=== PATIENT | female | born 1955 | race Caucasian/White ===

== ENCOUNTER 2019-11-27 17:18 | Emergency (ER) | payer MEDICARE, SELFPAY ==
--- NOTE | ~2019-11-27 | XR_ITS ---
XR knee LT 3V 11/27/2019 17:55 Indication: Left knee pain Procedure: 3 views left knee Comparison: 03/17/2007 Findings: There has been progression of severe osteoarthritis of the left knee. Small joint effusion. No acute fracture or traumatic malalignment. No foreign bodies. Impression: 1: Severe osteoarthritis of the left knee. Reviewed, dictated and finalized at location A. ER Impression: 1: Severe osteoarthritis of the left knee.
--- NOTE | 2019-11-27 17:22 | ED.LOWEXIN ---
HPI - Extremity Injury (Lower) General Chief Complaint: Extremity Injury, Lower Stated Complaint: L KNEE PAIN Time Seen by Provider: 11/27/19 17:46 Source: patient and RN notes reviewed Mode of arrival: ambulatory Limitations: no limitations History of Present Illness HPI Narrative: 64-year-old female with history of osteoarthritis in the knee presents with concern for left knee injury after hearing a crunch in her left knee when she was getting out of a truck, denies fall, denies blunt trauma, or other direct injury. Reports increase in swelling in the left knee. MD complaint: knee injury Related Data Home Medications Medication Instructions Recorded Confirmed acetaminophen 500 mg tablet 500 mg PO Q4H PRN 09/20/19 11/27/19 cholecalciferol (vitamin D3) 2,000 2,000 unit PO DAILY 09/20/19 11/27/19 unit tablet Allergies Allergy/AdvReac Type Severity Reaction Status Date / Time atenolol Allergy Unknown Cough Verified 11/27/19 17:37 chlorthalidone [Tenoretic] Allergy Unknown Other Verified 11/27/19 17:37 erythromycin base Allergy Unknown Abdominal Verified 11/27/19 17:37 Pain metronidazole Allergy Unknown water Verified 11/27/19 17:37 blisters Penicillins Allergy Unknown Blister Verified 11/27/19 17:37 tetracycline Allergy Unknown WATER Verified 11/27/19 17:37 BLISTERS morphine AdvReac Unknown N/V Verified 11/27/19 17:37 METRONIDAZOLE HCL Allergy Unknown WATER Uncoded 05/05/17 07:58 BLISTERS Review of Systems Review of Systems: Narrative: CONSTITUTIONAL: Denies malaise, chills, sweats, or fever. CARDIOVASCULAR: Denies chest pain, palpitations, or edema. RESPIRATORY: Denies dyspnea. SKIN: Denies rash or itching. MUSCULOSKELETAL: Reports left knee pain and swelling NEUROLOGIC: Denies numbness. Reports baseline left knee weakness. All systems reviewed & are unremarkable except as noted in HPI and below PMFSH Past Medical History Medical History (Updated 11/27/19 @ 18:13 by Damaris Whitehead NP) FH: mastectomy (2009) Hepatitis C antibody test negative (08/03/19) Surgical History Surgical History (Updated 09/20/19 @ 09:44 by Palmira Damico CMA) History of cholecystectomy (05/26/08) Family History Family History (Updated 02/11/18 @ 13:24 by DOCTOR UNKNOWN) Other Family history of cardiovascular disease Social History Social History Smoking status: Never smoker Alcohol intake: current Comments At time of signature, agree with nursing past medical, surgical, social and family history. There is no relevant family history pertinent to the presenting complaint Exam Narrative: Exam Narrative: GENERAL: Well-appearing, well-nourished, and in no acute distress. HEAD: Normocephalic, atraumatic. EYES: PERRLA, conjunctivae clear NECK: Supple. CHEST: Clear to auscultation. No respiratory distress. HEART: Regular rate and rhythm. No murmur heard. Normal peripheral pulses. EXTREMITIES: Left knee has normal sensation, moderate edema, limited range of motion. 3/5 strength with knee flexion and extension. No open wounds, no skin tenting, no devitalized tissue or atrophy, no trophic changes, no ecchymosis, no obvious deformity, alignment normal, no point tenderness, nearby joints and structures intact. Distal pulses palpable and equal bilaterally, skin warm, dry, pink. Capillary refill less than 3 seconds. SKIN: Warm, dry, no rash. NEURO: Alert and oriented x3. PSYCH: Normal mood and affect Course Course Emergency Course: Patient is aware of diagnosis, understands and agrees to treatment plan. Anticipatory guidance given. Patient agrees to follow-up as directed and is aware of reasons to seek care at the emergency department. Portions of this record may have been created with voice recognition software Vital Signs Vital signs: Vital Signs Temperature 97.6 F 11/27/19 17:24 Pulse Rate 84 11/27/19 17:24 Respiratory Rate 20 11/27/19 17:24 Blood Pressure 153/89 H
[2019-11-27 17:24] VITALS: BP 153/89; PULSE 84; RESP 20; TEMP 36.4; O2SAT 100
== END 2019-11-27 18:24 | disposition home or self-care (01) ==
PROVIDERS: Emergency Provider Nurse Practitioner
DX: S89.92XA Unspecified injury of left lower leg, initial encounter (principal); X58.XXXA Exposure to other specified factors, initial encounter; M17.12 Unilateral primary osteoarthritis, left knee; I10 Essential (primary) hypertension; Z85.3 Personal history of malignant neoplasm of breast; Z90.13 Acquired absence of bilateral breasts and nipples; Z92.21 Personal history of antineoplastic chemotherapy
CPT/HCPCS: 73562; 99213; G0463

== ENCOUNTER 2019-12-16 13:45 | Outpatient (CLI) | payer MEDICARE, SELFPAY ==
[2019-12-16 13:59] LABS: Basophils Percent Auto 0.6 % (0.2-1.2); Eosinophils Absolute Auto 0.1 K/mm3 (0-0.3); Hematocrit 39.6 % (37.0-47.0); Hemoglobin 13.1 g/dL (12.0-15.0); Immature Granulocyte Absolute 0.02 K/mm3 (0.00-0.031); Immature Granulocyte Percent A 0.3 % (0-0.5); Lymphocytes Absolute Auto 2.46 K/mm3 (0.9-3.2); Lymphocytes Percent Auto 37.7 % (18.3-44.2); Mean Corpuscular HGB Conc 33.1 g/dl (32-36); Mean Corpuscular Hemoglobin 30.5 pg (26-34); Mean Corpuscular Volume 92.3 fl (80-100); Mean Platelet Volume 8.8 fl (7.4-10.4); Monocytes Absolute Auto 0.9 K/mm3 (0.1-0.6); Monocytes Percent Auto 14.1 % (2.6-8.5); Neutrophils Percent Auto 45.3 % (45.5-73.1); Platelet Count Result 210 k/mm3 (150-375); Red Blood Count 4.29 M/mm3 (4.2-5.4); Red Cell Distribution Width 13.8 % (11.5-14.5); White Blood Count 6.5 K/mm3 (4.5-10.0)
[2019-12-16 16:53] LABS: Alanine Aminotransferase 28 U/L (4-35); Albumin Level 4.3 g/dL (3.5-5.1); Alkaline Phosphatase 78 U/L (38-126); Aspartate Amino Transferase 30 U/L (14-36); Bilirubin,Total 0.4 mg/dL (0.2-1.3); Blood Urea Nitrogen 14 mg/dL (7-17); Carbon Dioxide 31 mmol/L (22-30); Chloride 98 mmol/L (98-107); Estimated Glomerular Filt Rate > 60; Glucose 96 mg/dL (65-105); Potassium 3.9 mmol/L (3.4-5.0); Sodium 140 mmol/L (137-145)
[2019-12-19 04:58] LABS: CA 27.29 24 U/mL (<38)
== END 2019-12-16 13:46 | disposition home or self-care (01) ==
LOC: ANHLAB 13:48
PROVIDERS: Visit Provider Internal Medicine Hematology & Oncology
DX: C50.112 Malignant neoplasm of central portion of left female breast (principal)
CPT/HCPCS: 36415; 80053; 85025; 86300

== ENCOUNTER 2020-06-16 14:43 | Outpatient (CLI) | payer MEDICARE, SELFPAY ==
--- NOTE | ~2020-06-16 | US_ITS ---
EXAMINATION: US venous doppler [facility] EXAM DATE: 06/16/2020 15:20 INDICATION: Left leg edema, swelling. TECHNIQUE: Multiple grayscale, color flow and Doppler images of the left lower extremity deep venous system were obtained and reviewed. There is no prior study for comparison. FINDINGS: The left common femoral, femoral and profunda veins demonstrate normal color flow, respirat ory variation, augmentation and compressibility. Compressibility, color flow confirmed within the le ft popliteal, posterior tibial, peroneal, and greater saphenous veins. IMPRESSION: 1. No left lower extremity deep venous thrombosis. Reviewed, dictated and finalized at location B.
== END 2020-06-16 14:44 | disposition home or self-care (01) ==
PROVIDERS: PCP Family Medicine; Visit Provider Family Medicine
DX: R60.9 Edema, unspecified (principal)
CPT/HCPCS: 93971

== ENCOUNTER 2020-12-13 08:22 | Outpatient (CLI) | payer MEDICARE, SELFPAY ==
[2020-12-13 08:42] LABS: Basophils Percent Auto 0.6 % (0.2-1.2); Eosinophils Absolute Auto 0.1 K/mm3 (0-0.3); Eosinophils Percent Auto 1.9 % (0-4.4); Hematocrit 40.3 % (37.0-47.0); Immature Granulocyte Absolute 0.01 K/mm3 (0.00-0.031); Immature Granulocyte Percent A 0.1 % (0-0.5); Lymphocytes Absolute Auto 1.88 K/mm3 (0.9-3.2); Lymphocytes Percent Auto 27.1 % (18.3-44.2); Mean Corpuscular HGB Conc 32.3 g/dl (32-36); Mean Corpuscular Hemoglobin 29.7 pg (26-34); Mean Corpuscular Volume 92.2 fl (80-100); Mean Platelet Volume 8.9 fl (7.4-10.4); Monocytes Absolute Auto 1.2 K/mm3 (0.1-0.6); Monocytes Percent Auto 16.7 % (2.6-8.5); Neutrophils Absolute Auto 3.7 K/mm3 (1.3-6.7); Neutrophils Percent Auto 53.6 % (45.5-73.1); Platelet Count Result 288 k/mm3 (150-375); Red Blood Count 4.37 M/mm3 (4.2-5.4); White Blood Count 6.9 K/mm3 (4.5-10.0)
[2020-12-13 09:34] LABS: Alanine Aminotransferase 28 U/L (4-35); Albumin Level 4.1 g/dL (3.5-5.1); Alkaline Phosphatase 72 U/L (38-126); Anion Gap 7 mmol/L (8-16); Aspartate Amino Transferase 30 U/L (14-36); Bilirubin,Total 0.4 mg/dL (0.2-1.3); Blood Urea Nitrogen 17 mg/dL (7-17); Calcium 9.8 mg/dL (8.4-10.2); Carbon Dioxide 31 mmol/L (22-30); Chloride 97 mmol/L (98-107); Estimated Glomerular Filt Rate > 60; Glucose 106 mg/dL (65-105); Sodium 135 mmol/L (137-145)
[2020-12-16 07:22] LABS: CA 27.29 33 U/mL (<38)
== END 2020-12-13 08:23 | disposition home or self-care (01) ==
LOC: ANHLAB 08:25
PROVIDERS: PCP Family Medicine; Visit Provider Internal Medicine Hematology & Oncology
DX: C50.112 Malignant neoplasm of central portion of left female breast (principal)
CPT/HCPCS: 36415; 80053; 85025; 86300

== ENCOUNTER 2021-06-02 10:35 | Emergency (ER) | payer MEDICARE, SELFPAY ==
[2021-06-02 10:47] VITALS: BP 146/85; PULSE 69; RESP 16; TEMP 36.4; O2SAT 98
--- NOTE | 2021-06-02 11:10 | ED.GENADULT ---
HPI - General Adult General Chief complaint: Upper Respiratory Infection Stated complaint: sinus issues/difficulty breathing Time Seen by Provider: 06/02/21 11:00 Source: patient and RN notes reviewed Mode of arrival: ambulatory Limitations: no limitations History of Present Illness HPI narrative: 66-year-old female presents with complaints of upper respiratory infection, sneezing, some facial congestion, facial pressure, and cough for the past 14 days. Muna reports increasing facial pressure, coughing, and URI symptoms over the past 72 hours. Claritin, Flonase, Albuterol inhaler, and OTC cough medication without relief. ?No facial swelling.? Cough without chest congestion. ?Nasal congestion and rhinorrhea. ?No sore throat. No high fevers, drooling, neck or throat swelling. ?No voice change. ?No nausea, vomiting, or abdominal pain. Tolerating liquids well. ?Denies chills, dyspnea, difficulty swallowing, foreign body sensation, and rash. ?No chest pain or shortness of breath. ? The patient reports she has not been diagnosed with COVID-19. The patient reports she received 2 [employer] COVID-19 vaccines. The patient reports she is not waiting for the results of a COVID-19 lab test. The patient reports she does not have weakness, fatigue, or myalgia. The patient reports she does not have any loss of taste or smell and diarrhea. Denies recent traveling. Denies concerns for COVID-19 or exposures. At this time, the patient is not suspected of having COVID-19. Some parts of this dictation were generated by voice recognition software and may contain typographical and/or grammatical inaccuracies. Related Data Home Medications Medication Instructions Recorded Confirmed acetaminophen 500 mg tablet 500 mg PO Q4H PRN 09/20/19 03/07/21 cholecalciferol (vitamin D3) 50 2,000 unit PO DAILY 09/20/19 03/07/21 mcg (2,000 unit) tablet aspirin 81 mg tablet,delayed 81 mg PO DAILY 03/07/21 03/07/21 release Allergies Allergy/AdvReac Type Severity Reaction Status Date / Time atenolol Allergy Unknown Cough Verified 03/07/21 10:08 chlorthalidone [Tenoretic] Allergy Unknown Other Verified 03/07/21 10:08 erythromycin base Allergy Unknown Abdominal Verified 03/07/21 10:08 Pain metronidazole Allergy Unknown water Verified 03/07/21 10:08 blisters Penicillins Allergy Unknown Blister Verified 03/07/21 10:08 tetracycline Allergy Unknown WATER Verified 03/07/21 10:08 BLISTERS morphine AdvReac Unknown N/V Verified 11/02/20 10:23 Iodinated Contrast Media AdvReac rash and Verified 03/07/21 10:09 burning METRONIDAZOLE HCL Allergy Unknown WATER Uncoded 11/02/20 10:23 BLISTERS Review of Systems Review of Systems: CONSTITUTIONAL: Denies fever, chills, sweats. EYES: Denies visual changes, redness, discharge. ENT: Complains of rhinorrhea, congestion, facial congestion and pressure, sore throat. Denies otalgia. CARDIOVASCULAR: Denies chest pain, palpitations, edema. RESPIRATORY: Denies dyspnea, wheezing. Complaints of dry cough. GASTROINTESTINAL: Denies abdominal pain, nausea, vomiting, diarrhea. GENITOURINARY: Denies dysuria, hematuria, abnormal discharge SKIN: Denies rash or itching. MUSCULOSKELETAL: Denies acute back pain, joint pain, or myalgia. NEUROLOGIC: Denies numbness or focal weakness. PSYCHIATRIC: Denies anxiety or depression. All other systems reviewed & are unremarkable except as noted in HPI and below. [facility] Past Medical History Medical History (Updated 06/03/21 @ 00:00 by Cruz Sandoval) Asthma (02/24/18) Esophageal reflux Essential (primary) hypertension FH: mastectomy (2009) Hepatitis C antibody test negative (08/03/19) History of breast cancer Metabolic syndrome Mixed hyperlipidemia Other obesity Prediabetes Unspecified osteoarthritis, unspecified site Surgical History Surgical History (Updated 06/02/21 @ 11:13 by DEAN Blackman) History of bilateral mastectomy History of cholecystectomy (
== END 2021-06-02 11:27 | disposition home or self-care (01) ==
PROVIDERS: Emergency Provider Nurse Practitioner Family; PCP Family Medicine
DX: J32.9 Chronic sinusitis, unspecified (principal); J45.909 Unspecified asthma, uncomplicated; K21.9 Gastro-esophageal reflux disease without esophagitis; I10 Essential (primary) hypertension; E78.2 Mixed hyperlipidemia; R73.03 Prediabetes; M19.90 Unspecified osteoarthritis, unspecified site; Z85.3 Personal history of malignant neoplasm of breast; Z90.13 Acquired absence of bilateral breasts and nipples; Z79.82 Long term (current) use of aspirin
CPT/HCPCS: 99213; G0463

== ENCOUNTER → 2021-06-19 03:15 | Outpatient (CLI) | payer MEDICARE, SELFPAY ==
[2021-06-19 19:42] LABS: SARS-CoV-2 RNA PCR Negative
== END ==
PROVIDERS: PCP Family Medicine; Visit Provider Family Medicine
DX: R05 Cough (principal); R09.89 Other specified symptoms and signs involving the circulatory and respiratory systems; R09.81 Nasal congestion; Z20.822 Contact with and (suspected) exposure to COVID-19
CPT/HCPCS: C9803; U0003; U0005

== ENCOUNTER → 2021-08-13 10:04 | Outpatient (CLI) | payer MEDICARE, SELFPAY ==
--- NOTE | ~2021-08-13 | XR_ITS ---
XR chest 2V 08/13/2021 10:22 Indication: Cough for 6 weeks. Breast cancer. Procedure: 2 view chest Comparison: Comparison to multiple prior studies sequentially, with oldest reviewed study dated 01/08. Findings: There is a new pleural-based elliptical density right mid thorax laterally. Heart size norm al. There are surgical clips in the left breast and neck sella. Scoliosis. No focal pneumonia, edema, pleural effusion or pneumothorax. Impression: 1: Elliptical pleural-based masslike density right mid thorax. Follow-up CT chest with contrast recom mended. Reviewed, dictated and finalized at location B. Impression: 1: Elliptical pleural-based masslike density right mid thorax. Follow-up CT [facility] with contrast recommended.
== END ==
PROVIDERS: PCP Family Medicine; Visit Provider Family Medicine
DX: R05.9 Cough, unspecified (principal); R91.8 Other nonspecific abnormal finding of lung field
CPT/HCPCS: 71046

== ENCOUNTER → 2021-08-14 05:58 | Outpatient (CLI) | payer MEDICARE, SELFPAY ==
[2021-08-15 19:26] LABS: SARS-CoV-2 RNA PCR Negative
== END ==
PROVIDERS: PCP Family Medicine; Visit Provider Family Medicine
DX: Z20.822 Contact with and (suspected) exposure to COVID-19 (principal); R05.9 Cough, unspecified
CPT/HCPCS: C9803; U0003; U0005

== ENCOUNTER 2021-08-17 13:54 | Outpatient (CLI) | payer MEDICARE, SELFPAY ==
--- NOTE | ~2021-08-17 | CT_ITS ---
EXAMINATION: CT diagnostic chest w con DATE: 08/17/2021 14:32 INDICATION: Possible right chest mass, history of breast cancer TECHNIQUE: Transaxial computed tomographic images of the chest were obtained after the administration of 75 cc of Omnipaque 350 intravenous contrast. The dose-length product (DLP) was 439.32 mGy-cm. Ite rative reconstruction was used. COMPARISON: 12/29/2018 FINDINGS: The lungs are free of acute opacities. There is no pleural effusion or pneumothorax. No CT correlate is identified for the abnormality described on recent chest radiograph. Finding likely refl ect a the patient's right upper arm projecting over the right hemithorax. There are changes of bilate ral mastectomy and left axillary lymph node dissection. No pathologically enlarged thoracic lymph nod es are identified. The heart size is normal. There is moderate thoracic spondylosis. IMPRESSION: 1. No suspicious CT correlate identified for the chest radiographic finding in question. Reviewed, dictated and finalized at location A.
[2021-08-17 14:28] LABS: Estimated Glomerular Filt Rate > 60
== END 2021-08-17 13:55 | disposition home or self-care (01) ==
PROVIDERS: PCP Family Medicine; Visit Provider Family Medicine
DX: R09.89 Other specified symptoms and signs involving the circulatory and respiratory systems (principal); J94.8 Other specified pleural conditions; Z85.3 Personal history of malignant neoplasm of breast
CPT/HCPCS: 71260; Q9967

== ENCOUNTER → 2021-09-18 08:59 | Outpatient (CLI) | payer MEDICARE, SELFPAY ==
--- NOTE | ~2021-09-18 | XR_ITS ---
EXAMINATION: XR chest 2V DATE: 09/18/2021 09:26 INDICATION: Chronic cough and shortness of breath TECHNIQUE: PA and lateral views of the chest were obtained. COMPARISON: Chest radiograph dated 08/13/[address] dated 08/17/2021 FINDINGS: Mild linear atelectasis/scarring at the left costophrenic angle. Remainder of the lungs are clear wit h no new airspace opacities, pulmonary edema, pleural effusion or pneumothorax. The cardiomediastinal silhouette is normal. Moderate thoracic dextroscoliosis. Multiple surgical clips along the anterior chest wall and left axilla consistent with prior lateral meniscectomies and left axillary lymph node dissection. IMPRESSION: 1. Mild chronic atelectasis/scarring at the lingula. No acute cardiopulmonary disease. Reviewed, dictated and finalized at location A. [employer] IMPRESSION: 1. Mild chronic atelectasis/scarring at the lingula. No acute cardiopulmonary d isease.
== END ==
PROVIDERS: PCP Family Medicine; Visit Provider Family Medicine
DX: J94.8 Other specified pleural conditions (principal); M41.9 Scoliosis, unspecified
CPT/HCPCS: 71046

== ENCOUNTER → 2021-10-09 10:45 | Outpatient (CLI) | payer MEDICARE, SELFPAY ==
[2021-10-10 02:02] LABS: SARS-CoV-2 RNA PCR Negative
== END ==
PROVIDERS: PCP Family Medicine; Visit Provider Physician Assistant Medical
DX: R05.9 Cough, unspecified (principal); Z20.822 Contact with and (suspected) exposure to COVID-19
CPT/HCPCS: C9803; U0003; U0005

== ENCOUNTER 2021-12-03 08:43 | Outpatient (CLI) | payer MEDICARE, SELFPAY ==
[2021-12-03 09:01] LABS: Basophils Absolute Auto 0.1 K/mm3 (0.0-0.1); Basophils Percent Auto 0.9 % (0.2-1.2); Eosinophils Absolute Auto 0.1 K/mm3 (0-0.3); Eosinophils Percent Auto 1.3 % (0-4.4); Hematocrit 42.5 % (37.0-47.0); Hemoglobin 13.5 g/dL (12.0-15.0); Immature Granulocyte Absolute 0.01 K/mm3 (0.00-0.031); Immature Granulocyte Percent A 0.1 % (0-0.5); Lymphocytes Absolute Auto 1.82 K/mm3 (0.9-3.2); Lymphocytes Percent Auto 26.8 % (18.3-44.2); Mean Corpuscular HGB Conc 31.8 g/dl (32-36); Mean Corpuscular Hemoglobin 29.2 pg (26-34); Mean Platelet Volume 9.1 fl (7.4-10.4); Monocytes Percent Auto 14.2 % (2.6-8.5); Neutrophils Absolute Auto 3.8 K/mm3 (1.3-6.7); Neutrophils Percent Auto 56.7 % (45.5-73.1); Platelet Count Result 293 k/mm3 (150-375); Red Blood Count 4.62 M/mm3 (4.2-5.4); Red Cell Distribution Width 13.1 % (11.5-14.5); White Blood Count 6.8 K/mm3 (4.5-10.0)
[2021-12-03 13:50] LABS: Alanine Aminotransferase 25 U/L (4-35); Albumin Level 4.5 g/dL (3.5-5.1); Alkaline Phosphatase 89 U/L (38-126); Anion Gap 3 mmol/L (8-16); Aspartate Amino Transferase 55 U/L (14-36); Bilirubin,Total 0.5 mg/dL (0.2-1.3); Blood Urea Nitrogen 19 mg/dL (7-17); Calcium 10.3 mg/dL (8.4-10.2); Carbon Dioxide 32 mmol/L (22-30); Chloride 99 mmol/L (98-107); Estimated Glomerular Filt Rate > 60; Glucose 100 mg/dL (65-110); Potassium 4.2 mmol/L (3.4-5.0); Sodium 134 mmol/L (137-145)
[2021-12-06 05:25] LABS: CA 15-3 19 U/mL (<32)
== END 2021-12-03 08:44 | disposition home or self-care (01) ==
LOC: ANHLAB 08:44
PROVIDERS: PCP Family Medicine; Visit Provider Internal Medicine Hematology & Oncology
DX: C50.112 Malignant neoplasm of central portion of left female breast (principal)
CPT/HCPCS: 36415; 80053; 85025; 86300

== ENCOUNTER → 2022-02-07 11:53 | Outpatient (CLI) | payer MEDICARE, SELFPAY ==
--- NOTE | ~2022-02-07 | XR_ITS ---
EXAMINATION: XR chest 2V DATE: 02/07/2022 12:16 INDICATION: Cough and shortness of breath TECHNIQUE: PA and lateral views of the chest are obtained. COMPARISON: 09/18/2021 FINDINGS: The lungs are free of acute opacities. There is no pleural effusion or pneumothorax. The ca rdiomediastinal silhouette is normal. There is moderate thoracic spondylosis. Thoracic dextroscoliosi s is noted. There are changes of bilateral mastectomy and left axillary lymph node dissection. IMPRESSION: 1. No acute cardiopulmonary abnormality. Reviewed, dictated and finalized at location A.
== END ==
PROVIDERS: PCP Family Medicine; Visit Provider Family Medicine
DX: J45.909 Unspecified asthma, uncomplicated (principal); M41.9 Scoliosis, unspecified; M47.814 Spondylosis without myelopathy or radiculopathy, thoracic region
CPT/HCPCS: 71046

== ENCOUNTER → 2022-03-11 10:06 | Outpatient (CLI) | payer MEDICARE, SELFPAY ==
--- NOTE | ~2022-03-11 | XR_ITS ---
EXAMINATION: XR chest 2V 03/11/2022 10:48 INDICATION: Cough. Asthma. PROCEDURE: 2 view chest COMPARISON: No prior studies for comparison. FINDINGS: The lungs are clear. The cardiomediastinal silhouette is within normal limits. There are no pleural effusions. There is no pneumothorax suspected. There is scoliosis. No acute osseous abno rmality. IMPRESSION: 1: NO ACUTE CARDIOPULMONARY DISEASE. Reviewed, dictated and finalized at location A.
== END ==
PROVIDERS: PCP Family Medicine; Visit Provider Family Medicine
DX: R05.9 Cough, unspecified (principal)
CPT/HCPCS: 71046

== ENCOUNTER 2022-04-01 09:10 | Outpatient (CLI) | payer MEDICARE, SELFPAY | END 2022-04-01 09:11 | disposition home or self-care (01) | PROVIDERS: PCP Family Medicine; Visit Provider Nurse Practitioner Family | DX: R09.3 Abnormal sputum (principal) | CPT/HCPCS: 87015; 87070; 87102; 87116; 87205; 87206 ==

== ENCOUNTER 2022-05-02 10:03 | Outpatient (CLI) | payer MEDICARE, SELFPAY | END 2022-05-02 10:04 | disposition home or self-care (01) | LOC: ANHLAB 10:08 | PROVIDERS: PCP Family Medicine; Visit Provider Nurse Practitioner Family | DX: R09.3 Abnormal sputum (principal) | CPT/HCPCS: 87070; 87102; 87205; 87206 ==

== ENCOUNTER 2022-05-27 11:52 | Emergency (ER) | payer MEDICARE, SELFPAY ==
--- NOTE | 2022-05-27 11:57 | ED.URI ---
HPI - URI/Sore Throat General Chief Complaint: Upper Respiratory Infection Stated Complaint: chronic cough Time Seen by Provider: 05/27/22 12:01 Source: patient and RN notes reviewed Mode of arrival: ambulatory Limitations: no limitations History of Present Illness HPI Narrative: 67-year-old female presents to the [facility] with complaints of a chronic cough. Patient states that her PFTs keep getting canceled because of her cough. Was prescribed prednisone on May 21 as well as Levaquin. Just finished Levaquin today, prednisone she is still on. Has been using her nebulizer treatments which states makes her very jittery. Has seen pulmonology and her primary care in regards to this cough. Patient states that she is just tired of coughing. Has had multiple COVID tests which have all been negative. No fevers. Has a history of hypertension. No extremity swelling. Any chest pain. Has tried [id number] cough products with no relief. Was started on Trelegy which she reports caused thrush. MD elicited complaint: cough Related Data Home Medications Medication Instructions Recorded Confirmed acetaminophen 500 mg tablet 500 mg PO Q4H PRN Pain 09/20/19 04/25/22 aspirin 81 mg tablet,delayed 81 mg PO DAILY 03/07/21 04/25/22 release (Adult Aspirin Regimen) magnesium 250 mg tablet 250 mg PO DAILY 03/18/22 04/25/22 diphenhydramine HCl 25 mg capsule 25 mg PO QHS PRN 04/25/22 04/25/22 (Benadryl) Allergies Allergy/AdvReac Type Severity Reaction Status Date / Time atenolol Allergy Unknown Cough Verified 04/25/22 13:31 chlorthalidone [Tenoretic] Allergy Unknown Other Verified 04/25/22 13:31 erythromycin base Allergy Unknown Abdominal Verified 04/25/22 13:31 Pain metronidazole Allergy Unknown water Verified 04/25/22 13:31 blisters Penicillins Allergy Unknown Blister Verified 04/25/22 13:31 tetracycline Allergy Unknown WATER Verified 04/25/22 13:31 BLISTERS morphine AdvReac Unknown N/V Verified 04/25/22 13:31 Iodinated Contrast Media AdvReac rash and Verified 04/25/22 13:31 burning METRONIDAZOLE HCL Allergy Unknown WATER Uncoded 04/25/22 13:31 BLISTERS Review of Systems Review of Systems: All systems reviewed & are unremarkable except as noted in HPI and below Constitutional: Constitutional: Reports no additional constitutional complaints, Denies chills and Denies fever(s) Eyes: Eyes: Reports no additional eye complaints ENT: Reports system reviewed and no additional complaints, except as documented Cardiovascular: Cardiovascular: Reports no additional cardiovascular complaints Respiratory: Respiratory: Reports as per HPI, Denies chest congestion, Reports cough, Denies dyspnea and Denies wheezing Gastrointestinal: Gastrointestinal: Reports no additional gastrointestinal complaints Musculoskeletal: Musculoskeletal: Reports no additional musculoskeletal complaints Integumentary/Breasts: Skin/Breast: Reports system reviewed and no additional complaints, except as docu Neurologic: Reports system reviewed and no additional complaints, except as documented Psychiatric: Psychiatric: Reports no additional psychiatric complaints Allergic/Immunologic: Allergic/Immunologic: Reports no additional allergic/immunologic complaints [facility] Past Medical History Medical History Asthma (02/24/18) Esophageal reflux Essential (primary) hypertension FH: mastectomy (2009) Hepatitis C antibody test negative (08/03/19) History of breast cancer Metabolic syndrome Mixed hyperlipidemia Other obesity Prediabetes Unspecified osteoarthritis, unspecified site Surgical History Surgical History History of bilateral mastectomy History of cholecystectomy (05/26/08) History of tonsillectomy Family History Family History Father Hypertension Moth
[2022-05-27 12:02] VITALS: BP 163/117; PULSE 92; RESP 16; TEMP 36.4; O2SAT 98
[2022-05-27 12:04] VITALS: BP 163/117; PULSE 92; RESP 16; TEMP 36.4; O2SAT 98
== END 2022-05-27 12:26 | disposition home or self-care (01) ==
PROVIDERS: Emergency Provider Nurse Practitioner
DX: R05.3 Chronic cough (principal); J45.909 Unspecified asthma, uncomplicated; I10 Essential (primary) hypertension; E78.2 Mixed hyperlipidemia; R73.03 Prediabetes; M19.90 Unspecified osteoarthritis, unspecified site; Z85.3 Personal history of malignant neoplasm of breast; Z90.13 Acquired absence of bilateral breasts and nipples; K21.9 Gastro-esophageal reflux disease without esophagitis; Z79.82 Long term (current) use of aspirin
CPT/HCPCS: 99211; G0463

== ENCOUNTER 2022-06-04 12:12 | Emergency (ER) | payer MEDICARE, SELFPAY ==
[2022-06-04] VITALS (9 sets, daily range): BP systolic 173; BP diastolic 82; PULSE 82–100; RESP 15–26; TEMP 36.8; O2SAT 97–100
--- NOTE | ~2022-06-04 | XR_ITS ---
XR chest 2V DATE: 06/04/2022 12:29 INDICATION: Shortness of breath, lightheadedness, cough. History of COPD. TECHNIQUE: PA and lateral views COMPARISON: 03/11/2022 2 view chest FINDINGS: Surgical clips overlie the left axilla and lateral left chest. Surgical clips overlie left hilum. Heart size is within normal limits. Is aortic arch calcification. No hilar or mediastinal enlargement is evident. No pulmonary infiltrate or consolidation, pleural effusion or pulmonary vascular congestion or pneumo thorax. Surgical clips, right upper quadrant, likely due to cholecystectomy. Diffuse osteopenia. Prominent dextroscoliosis of the thoracic spine. Prominent degenerative disc disease in the cervical spine. IMPRESSION: No active cardiopulmonary disease or significant change since 03/11/2022 Reviewed, dictated and finalized at location B. IMPRESSION: No active cardiopulmonary disease or significant change since 2021
--- NOTE | ~2022-06-04 | NM_ITS ---
. EXAMINATION: NM pulmonary perfusion DATE: 06/04/2022 15:06 INDICATION: Dyspnea. TECHNIQUE: 5.4 mCi Tc-99m MAA was administered intravenously for perfusion images. Scintigraphic ronit ges of the chest were obtained. COMPARISON: Chest CT 08/17/2021, chest 2 views 06/04/2022 FINDINGS: Perfusion images show no defects. IMPRESSION: 1. Normal perfusion. Pulmonary embolism absent. Reviewed, dictated and finalized at location A.
--- NOTE | 2022-06-04 12:16 | ECG_ITS ---
Measurements Intervals [place] Rate: 87 P: 48 DE: 141 QRS: -32 QRSD: 89 T: 30 QT: 340 QTc: 410 Interpretive Statements SINUS RHYTHM WITH OCCASIONAL SUPRAVENTRICULAR PREMATURE COMPLEXES POSSIBLE LEFT ATRIAL ENLARGEMENT [-0.1mV P WAVE IN V1/V2] MARKED LEFT AXIS DEVIATION [QRS AXIS < -30] PATTERN CONSISTENT WITH PULMONARY DISEASE POSSIBLE LEFT VENTRICULAR HYPERTROPHY [VOLTAGE CRITERIA PLUS LAE OR QRS WIDENING] POSSIBLE SEPTAL MYOCARDIAL INFARCTION , OF INDETERMINATE AGE [30 ms Q WAVE IN V1/V2] NO PREVIOUS ECG AVAILABLE FOR COMPARISON Electronically Signed On 06-04-2022 16:40:52 CDT by Adilene Torres M.D.
--- NOTE | 2022-06-04 12:29 | ED.SOB ---
HPI - SOB/Dyspnea General Chief Complaint: Shortness of Breath/Dyspnea Stated Complaint: COPD bronchitis with asthma, SOB, swelling Time Seen by Provider: 06/04/22 12:29 History of Present Illness HPI Narrative: The patient is a 67-year-old female with a history of asthma, breast cancer s/p bilateral mastectomy, presenting to the emergency department for evaluation of wheezing and shortness of breath. Patient states that she has been sick for several months with increased wheezing, shortness of breath that is worse with exertion. She reports significant cough and episodes of bronchitis for which she has been on daily steroids and nebulizer treatments. Patient reports minimal to no improvement with these treatments at home. She states that she has follow-up scheduled pulmonology with Dr. Brenden Padilla next week. She denies fever, chills but reports diaphoresis at times. She denies any significant chest pain. She denies pleuritic pain or hemoptysis. She does report nonproductive cough. No known history of COVID. She has been vaccinated with 1 booster. She reports bilateral lower extremity swelling without significant pain or redness. Patient reports she came to the emergency department today because she has felt fatigued and worse than she has ever felt. Pt currently on 2 mg Prednisone daily as reported by patient. Related Data Home Medications Medication Instructions Recorded Confirmed acetaminophen 500 mg tablet 500 mg PO Q4H PRN Pain 09/20/19 04/25/22 aspirin 81 mg tablet,delayed 81 mg PO DAILY 03/07/21 04/25/22 release (Adult Aspirin Regimen) magnesium 250 mg tablet 250 mg PO DAILY 03/18/22 04/25/22 diphenhydramine HCl 25 mg capsule 25 mg PO QHS PRN Allergic Reaction 04/25/22 04/25/22 (Benadryl) Allergies Allergy/AdvReac Type Severity Reaction Status Date / Time atenolol Allergy Unknown Cough Verified 06/04/22 13:07 chlorthalidone [Tenoretic] Allergy Unknown Other Verified 06/04/22 13:07 erythromycin base Allergy Unknown Abdominal Verified 06/04/22 13:07 Pain metronidazole Allergy Unknown water Verified 06/04/22 13:07 blisters Penicillins Allergy Unknown Blister Verified 06/04/22 13:07 tetracycline Allergy Unknown WATER Verified 06/04/22 13:07 BLISTERS morphine AdvReac Unknown N/V Verified 06/04/22 13:07 Iodinated Contrast Media AdvReac rash and Verified 06/04/22 13:07 burning METRONIDAZOLE HCL Allergy Unknown WATER Uncoded 06/04/22 12:41 BLISTERS Review of Systems Review of Systems: CONSTITUTIONAL: Denies fever, chills, reports diaphoresis. EYES: Denies visual changes, redness, or discharge. ENT: Denies rhinorrhea, congestion, sore throat, or otalgia. CARDIOVASCULAR: Denies chest pain, palpitations, reports bilateral lower extremity swelling RESPIRATORY: Reports cough and shortness of breath GASTROINTESTINAL: Denies abdominal pain, nausea, vomiting, or diarrhea. GENITOURINARY: Denies dysuria or hematuria. SKIN: Denies rash or itching. MUSCULOSKELETAL: Denies back pain, joint pain, or myalgia. NEUROLOGIC: Denies headache, numbness, or weakness. [facility] Past Medical History Medical History Asthma (02/24/18) Esophageal reflux Essential (primary) hypertension FH: mastectomy (2009) Hepatitis C antibody test negative (08/03/19) History of breast cancer Metabolic syndrome Mixed hyperlipidemia Other obesity Prediabetes Unspecified osteoarthritis, unspecified site Surgical History Surgical History History of bilateral mastectomy History of cholecystectomy (05/26/08) History of tonsillectomy Family History Family History Father Hypertension Mother Hypertension Diabetes mellitus Other Family history of cardiovascular disease Social History Social History (Reviewed 06/04/22 @ 13:12 by Perri
--- NOTE | 2022-06-04 12:55 | PC.NURSE ---
Dr. Pillai at bedside to assess pt.
[2022-06-04] MEDS: SODIUM CHLORIDE 0.9% IV 500 ML 999 ML IV CONT (13:20)
[2022-06-04] MEDS: methylPREDNISolone SOD SUCC 125 MG VIAL IV PUSH (13:21)
[2022-06-04 13:26] LABS: Basophils Percent Auto 0.2 % (0.2-1.2); Eosinophils Absolute Auto 0.1 K/mm3 (0-0.3); Eosinophils Percent Auto 0.9 % (0-4.4); Hematocrit 43.4 % (37.0-47.0); Immature Granulocyte Absolute 0.26 K/mm3 (0.00-0.031); Lymphocytes Absolute Auto 1.24 K/mm3 (0.9-3.2); Lymphocytes Percent Auto 9.3 % (18.3-44.2); Mean Corpuscular HGB Conc 32.3 g/dl (32-36); Mean Corpuscular Hemoglobin 30.4 pg (26-34); Mean Corpuscular Volume 94.3 fl (80-100); Mean Platelet Volume 8.5 fl (7.4-10.4); Monocytes Absolute Auto 1.4 K/mm3 (0.1-0.6); Monocytes Percent Auto 10.2 % (2.6-8.5); Neutrophils Absolute Auto 10.3 K/mm3 (1.3-6.7); Neutrophils Percent Auto 77.4 % (45.5-73.1); Platelet Count Result 251 k/mm3 (150-375); Red Cell Distribution Width 14.6 % (11.5-14.5); White Blood Count 13.3 K/mm3 (4.5-10.0)
[2022-06-04] MEDS: ALBUTEROL SULFATE NEB 2.5 MG/3 ML INH 10 MG INHALATION (13:32)
[2022-06-04] MEDS: IPRATROPIUM BR 0.02% INH SOLN 0.5 MG/2.5 ML VIAL 1 MG INHALATION (13:32)
[2022-06-04 13:36] LABS: Alveolar/Arterial O2 Gradient 8.2 mmHg; Base Excess ABG 0.6 mEq/l (+/-2.0); Carboxyhemoglobin 0.2 % THb (0-2.0); Device ROOM AIR; Fractional Inspired Oxygen 21 %; HCO3 ABG 24.3 mEq/l (22.0-26.0); Methemoglobin ABG 0.3 %THb (0-1.5); Modified Allen's Test Pass; Oxygen Content ABG 19.5 %vol (16.0-22.0); Oxygen Saturation ABG 97.7 % (95.0-100.0); Oxyhemoglobin 96.8 % THb (90.0-100.0); PCO2 ABG 36.5 mmHg (35.0-45.0); PO2 ABG 97.8 mmHg (80.0-100.0); PO2 FiO2 Ratio Arterial Blood 4.66 %; Reduced Hemoglobin 2.7 %THb (0-5.0); Site Drawn RIGHT RADIAL; Total Hemoglobin 14.3 g/dL (12.0-18.0); pH ABG 7.442 (7.350-7.450)
[2022-06-04 13:44] LABS: Alanine Aminotransferase 30 U/L (6-35); Albumin Level 4.2 g/dL (3.5-5.1); Alkaline Phosphatase 89 U/L (38-126); Anion Gap 8 mmol/L (8-16); Aspartate Amino Transferase 34 U/L (14-36); Bilirubin,Total 0.4 mg/dL (0.2-1.3); Blood Urea Nitrogen 20 mg/dL (7-17); Carbon Dioxide 31 mmol/L (22-30); Chloride 97 mmol/L (98-107); Estimated CRCL calculation 67 ml/min; Estimated Glomerular Filt Rate > 60; Glucose 136 mg/dL (65-110); Potassium 4.4 mmol/L (3.4-5.0); Sodium 136 mmol/L (137-145)
[2022-06-04 13:47] LABS: NT Pro B Type Natriuretic Pept 315 pg/mL (5-100)
[2022-06-04 13:52] LABS: D Dimer 0.83 ug/mL (<0.48)
[2022-06-04 14:01] LABS: SARS-CoV-2 RNA PCR Negative
[2022-06-04 14:02] LABS: Troponin I < 0.012 ng/mL (0.000-0.034)
[2022-06-04] MEDS: diphenhydrAMINE HCl INJ 50 MG/ML VIAL IV PUSH (14:20)
--- NOTE | 2022-06-04 16:15 | PC.NURSE ---
Patient ambulated around nursing station to assess oxygen saturation. Patient maintained O2 sat of 94-97% on RA while ambulatory. made aware.
== END 2022-06-04 16:33 | disposition home or self-care (01) ==
PROVIDERS: Family Medicine; Emergency Provider Emergency Medicine; PCP Family Medicine
DX: J40 Bronchitis, not specified as acute or chronic (principal); R05.3 Chronic cough; Z20.822 Contact with and (suspected) exposure to COVID-19; K21.9 Gastro-esophageal reflux disease without esophagitis; E78.2 Mixed hyperlipidemia; E88.81 Metabolic syndrome and other insulin resistance; E66.8 Other obesity; Z68.37 Body mass index [BMI] 37.0-37.9, adult; Z85.3 Personal history of malignant neoplasm of breast; Z90.13 Acquired absence of bilateral breasts and nipples; Z79.82 Long term (current) use of aspirin; I49.1 Atrial premature depolarization; R94.31 Abnormal electrocardiogram [ECG] [EKG]
CPT/HCPCS: 36415; 36600; 71046; 78580; 80053; 82375; 82805; 83050; 83880; 84443; 84484; 85025; 85380; 93005; 94640; 96361; 96374; 96375; 99284; A9540; C9803; J1200; J2930; J7040; U0003; U0005

== ENCOUNTER → 2022-07-17 14:35 | Outpatient (CLI) | payer MEDICARE, SELFPAY ==
--- NOTE | ~2022-07-17 | CT_ITS ---
EXAMINATION: CT sinus wo con DATE: 07/17/2022 14:49 INDICATION: Chronic sinusitis. Cough. Asthma. TECHNIQUE: Computed tomography (CT) of the paranasal sinuses was performed without intravenous contra st. The dose-length product was 270.28 mGy-cm. Automated exposure control and iterative reconstructio n technique were employed. COMPARISON: None FINDINGS: There is no significant mucosal thickening of the paranasal sinuses. No significant air-flu id levels or mucosal thickening. There is intracranial atherosclerosis. Mild leftward nasal septal de viation. Ostiomeatal units are patent bilaterally. Mastoids are pneumatized. IMPRESSION: 1. No significant sinus disease. Reviewed, dictated and finalized at location A.
== END ==
PROVIDERS: PCP Family Medicine; Visit Provider Allergy & Immunology
DX: J32.9 Chronic sinusitis, unspecified (principal); J34.2 Deviated nasal septum; I67.2 Cerebral atherosclerosis
CPT/HCPCS: 70486

== ENCOUNTER 2022-12-09 09:03 | Outpatient (CLI) | payer MEDICARE, SELFPAY ==
[2022-12-09 09:18] LABS: Basophils Absolute Auto 0.1 K/mm3 (0.0-0.1); Eosinophils Absolute Auto 0.2 K/mm3 (0-0.3); Eosinophils Percent Auto 2.2 % (0-4.4); Hematocrit 40.4 % (37.0-47.0); Hemoglobin 12.9 g/dL (12.0-15.0); Immature Granulocyte Absolute 0.02 K/mm3 (0.00-0.031); Immature Granulocyte Percent A 0.3 % (0-0.5); Lymphocytes Percent Auto 27.3 % (18.3-44.2); Mean Corpuscular HGB Conc 31.9 g/dl (32-36); Mean Corpuscular Hemoglobin 28.7 pg (26-34); Mean Corpuscular Volume 89.8 fl (80-100); Mean Platelet Volume 9.6 fl (7.4-10.4); Monocytes Absolute Auto 0.9 K/mm3 (0.1-0.6); Monocytes Percent Auto 12.9 % (2.6-8.5); Neutrophils Absolute Auto 3.9 K/mm3 (1.3-6.7); Neutrophils Percent Auto 56.3 % (45.5-73.1); Platelet Count Result 336 k/mm3 (150-375); Red Cell Distribution Width 14.6 % (11.5-14.5)
[2022-12-09 11:15] LABS: Alanine Aminotransferase 30 U/L (6-35); Albumin Level 4.3 g/dL (3.5-5.1); Alkaline Phosphatase 96 U/L (38-126); Anion Gap 9 mmol/L (8-16); Aspartate Amino Transferase 31 U/L (14-36); Bilirubin,Total 0.5 mg/dL (0.2-1.3); Blood Urea Nitrogen 14 mg/dL (7-17); Calcium 9.6 mg/dL (8.4-10.2); Carbon Dioxide 29 mmol/L (22-30); Chloride 101 mmol/L (98-107); Estimated Glomerular Filt Rate > 60; Glucose 109 mg/dL (65-110); Potassium 4.1 mmol/L (3.4-5.0); Sodium 139 mmol/L (137-145)
[2022-12-13 05:40] LABS: CA 15-3 19 U/mL (<32)
== END 2022-12-09 09:04 | disposition home or self-care (01) ==
LOC: ANHLAB 09:05
PROVIDERS: PCP Family Medicine; Visit Provider Internal Medicine Hematology & Oncology
DX: C50.112 Malignant neoplasm of central portion of left female breast (principal)
CPT/HCPCS: 36415; 80053; 85025; 86300

== ENCOUNTER → 2023-03-14 11:19 | Outpatient (CLI) | payer MEDICARE, SELFPAY ==
--- NOTE | ~2023-03-14 | XR_ITS ---
EXAMINATION: XR chest 2V 03/14/2023 11:51 INDICATION: Large mass left upper abdomen PROCEDURE: 2 view chest COMPARISON: Comparison to multiple prior studies sequentially, with oldest reviewed study dated 05/18. FINDINGS: The lungs are clear. The cardiomediastinal silhouette is within normal limits. There are no pleural effusions. There is no pneumothorax suspected. There is dextroscoliosis. IMPRESSION: 1: NO ACUTE CARDIOPULMONARY DISEASE. Reviewed, dictated and finalized at location B.
--- NOTE | ~2023-03-14 | US_ITS ---
EXAMINATION: US soft tissue chest DATE: 03/14/2023 11:53 INDICATION: Left chest mass. TECHNIQUE: Multiple grayscale and Doppler ultrasound images of the chest were obtained. COMPARISON: Chest CT 08/17/2021 FINDINGS: In the left chest, there is normal subcutaneous fat in the patient's area of concern. IMPRESSION: 1. Normal subcutaneous fat in the patient's area of concern in left chest. Reviewed, dictated and finalized at location A.
== END ==
PROVIDERS: PCP Family Medicine; Visit Provider Family Medicine
DX: Z98.890 Other specified postprocedural states (principal)
CPT/HCPCS: 71046; 76604

== ENCOUNTER 2023-06-12 08:59 | Outpatient (CLI) | payer MEDICARE, SELFPAY ==
[2023-06-12 09:21] LABS: Basophils Absolute Auto 0.1 K/mm3 (0.0-0.1); Basophils Percent Auto 0.8 % (0.2-1.2); Eosinophils Absolute Auto 0.3 K/mm3 (0-0.3); Eosinophils Percent Auto 4.2 % (0-4.4); Hematocrit 40.6 % (37.0-47.0); Hemoglobin 12.8 g/dL (12.0-15.0); Immature Granulocyte Absolute 0.01 K/mm3 (0.00-0.031); Immature Granulocyte Percent A 0.1 % (0-0.5); Lymphocytes Absolute Auto 2.17 K/mm3 (0.9-3.2); Lymphocytes Percent Auto 30.3 % (18.3-44.2); Mean Corpuscular HGB Conc 31.5 g/dl (32-36); Mean Corpuscular Volume 92.1 fl (80-100); Mean Platelet Volume 9.5 fl (7.4-10.4); Monocytes Percent Auto 13.8 % (2.6-8.5); Neutrophils Absolute Auto 3.6 K/mm3 (1.3-6.7); Neutrophils Percent Auto 50.8 % (45.5-73.1); Platelet Count Result 263 k/mm3 (150-375); Red Blood Count 4.41 M/mm3 (4.2-5.4); Red Cell Distribution Width 14.1 % (11.5-14.5); White Blood Count 7.2 K/mm3 (4.5-10.0)
[2023-06-12 11:12] LABS: Alanine Aminotransferase 20 U/L (6-35); Albumin Level 4.2 g/dL (3.5-5.1); Alkaline Phosphatase 73 U/L (38-126); Anion Gap 2 mmol/L (8-16); Aspartate Amino Transferase 26 U/L (14-36); Bilirubin,Total 0.4 mg/dL (0.2-1.3); Blood Urea Nitrogen 24 mg/dL (7-17); Calcium 9.2 mg/dL (8.4-10.2); Carbon Dioxide 32 mmol/L (22-30); Chloride 101 mmol/L (98-107); Estimated Glomerular Filt Rate > 60; Glucose 91 mg/dL (65-110); Potassium 4.2 mmol/L (3.4-5.0); Sodium 135 mmol/L (137-145)
[2023-06-18 05:20] LABS: CA 15-3 22 U/mL (<32)
== END 2023-06-12 09:00 | disposition home or self-care (01) ==
LOC: ANHLAB 09:03
PROVIDERS: PCP Family Medicine; Visit Provider Internal Medicine Hematology & Oncology
DX: C50.112 Malignant neoplasm of central portion of left female breast (principal)
CPT/HCPCS: 36415; 80053; 85025; 86300

== ENCOUNTER 2023-07-31 08:25 | Outpatient (CLI) | payer MEDICARE, SELFPAY ==
[2023-07-31 18:40] LABS: Cholesterol 194 mg/dL (0-200); HDL Direct 45 mg/dL; Triglycerides 150 mg/dL (<150)
[2023-07-31 18:43] LABS: Hematocrit 40.7 % (37.0-47.0); Hemoglobin 12.6 g/dL (12.0-15.0); Mean Corpuscular Hemoglobin 29.2 pg (26-34); Mean Corpuscular Volume 94.4 fl (80-100); Mean Platelet Volume 12.6 fl (7.4-10.4); Platelet Count Result 163 k/mm3 (150-375); Red Blood Count 4.31 M/mm3 (4.2-5.4); Red Cell Distribution Width 15.3 % (11.5-14.5); White Blood Count 6.1 K/mm3 (4.5-10.0)
[2023-07-31 18:50] LABS: LDL Cholesterol Direct 109 mg/dL
[2023-07-31 19:12] LABS: Alanine Aminotransferase 22 U/L (6-35); Albumin Level 4.2 g/dL (3.5-5.1); Alkaline Phosphatase 76 U/L (38-126); Anion Gap 7 mmol/L (8-16); Aspartate Amino Transferase 40 U/L (14-36); Bilirubin,Total 0.6 mg/dL (0.2-1.3); Blood Urea Nitrogen 19 mg/dL (7-17); Calcium 9.1 mg/dL (8.4-10.2); Carbon Dioxide 30 mmol/L (22-30); Chloride 100 mmol/L (98-107); Estimated Glomerular Filt Rate > 60; Glucose 92 mg/dL (65-110); Potassium 4.2 mmol/L (3.4-5.0); Sodium 137 mmol/L (137-145)
== END 2023-07-31 08:26 | disposition home or self-care (01) ==
PROVIDERS: PCP Family Medicine; Visit Provider Family Medicine
DX: E78.5 Hyperlipidemia, unspecified (principal); E66.9 Obesity, unspecified; I10 Essential (primary) hypertension; Z79.899 Other long term (current) drug therapy
CPT/HCPCS: 36415; 80053; 80061; 84443; 85027

== ENCOUNTER 2023-12-03 09:06 | Outpatient (CLI) | payer MEDICARE, SELFPAY ==
[2023-12-03 19:01] LABS: Alanine Aminotransferase 24 U/L (6-35); Albumin Level 4.3 g/dL (3.5-5.1); Alkaline Phosphatase 75 U/L (38-126); Anion Gap 2 mmol/L (8-16); Aspartate Amino Transferase 42 U/L (14-36); Bilirubin,Total 0.5 mg/dL (0.2-1.3); Blood Urea Nitrogen 19 mg/dL (7-17); Calcium 9.6 mg/dL (8.4-10.2); Carbon Dioxide 33 mmol/L (22-30); Chloride 102 mmol/L (98-107); Cholesterol 228 mg/dL (0-200); Estimated Glomerular Filt Rate > 60; Glucose 85 mg/dL (65-110); HDL Direct 49 mg/dL; Sodium 137 mmol/L (137-145); Triglycerides 189 mg/dL (<150)
[2023-12-03 19:12] LABS: LDL Cholesterol Direct 134 mg/dL
== END 2023-12-03 09:07 | disposition home or self-care (01) ==
LOC: ANHGOSHLAB 09:08
PROVIDERS: PCP Family Medicine; Visit Provider Nurse Practitioner
DX: E78.5 Hyperlipidemia, unspecified (principal); E55.9 Vitamin D deficiency, unspecified
CPT/HCPCS: 36415; 80053; 80061; 82306

== ENCOUNTER 2024-03-20 14:03 | Emergency (ER) | payer MEDICARE, SELFPAY ==
[2024-03-20 14:12] VITALS: BP 132/99; PULSE 89; RESP 16; TEMP 37; O2SAT 99
--- NOTE | 2024-03-20 15:07 | ED.URI ---
HPI - URI/Sore Throat General Chief Complaint: Upper Respiratory Infection Stated Complaint: Cough,Congestion,Sore Throat Time Seen by Provider: 03/20/24 14:54 Source: patient, RN notes reviewed and old records reviewed Mode of arrival: ambulatory Limitations: no limitations History of Present Illness HPI Narrative: 68-year-old female to [facility] for complaint of postnasal drainage, productive cough with yellow sputum for 1 week. Patient reports that she saw her primary care provider 1 week ago and was put on antibiotics; has 2 days left. Patient states that she came in today because her throat has become intensely sore over past 2 days and she wanted to be tested for strep throat. Patient denies fever, headache, shortness of breath, chest pain. Patient in no acute distress. Respirations even and nonlabored. Patient able to tolerate fluids by mouth. Related Data Home Medications Medication Instructions Recorded Confirmed aspirin 81 mg tablet,delayed 81 mg PO DAILY 03/07/21 03/20/24 release (Adult Aspirin Regimen) magnesium 250 mg tablet 250 mg PO DAILY 03/18/22 03/20/24 Allergies Allergy/AdvReac Type Severity Reaction Status Date / Time atenolol Allergy Unknown Cough Verified 03/20/24 14:22 chlorthalidone [Tenoretic] Allergy Unknown Other Verified 03/20/24 14:22 erythromycin base Allergy Unknown Abdominal Verified 03/20/24 14:22 Pain metronidazole Allergy Unknown water Verified 03/20/24 14:22 blisters Penicillins Allergy Unknown Blister Verified 03/20/24 14:22 tetracycline Allergy Unknown WATER Verified 03/20/24 14:22 BLISTERS omeprazole AdvReac Mild Diarrhea Verified 03/20/24 14:22 morphine AdvReac Unknown N/V Verified 03/20/24 14:22 Iodinated Contrast Media AdvReac rash and Verified 03/20/24 14:22 burning METRONIDAZOLE HCL Allergy Unknown WATER Uncoded 03/20/24 14:22 BLISTERS Review of Systems Review of Systems: All systems reviewed & are unremarkable except as noted in HPI and below Constitutional: Constitutional: Reports no additional constitutional complaints Eyes: Eyes: Reports no additional eye complaints ENT: Reports system reviewed and no additional complaints, except as documented Cardiovascular: Cardiovascular: Reports no additional cardiovascular complaints, Denies chest pain and Denies dyspnea Respiratory: Respiratory: Reports no additional respiratory complaints, Reports cough, Reports excessive phlegm production and Denies dyspnea Musculoskeletal: Musculoskeletal: Reports no additional musculoskeletal complaints Neurologic: Reports system reviewed and no additional complaints, except as documented Psychiatric: Psychiatric: Reports no additional psychiatric complaints [facility] Past Medical History Medical History Asthma (02/24/18) Esophageal reflux Essential (primary) hypertension FH: mastectomy (2009) Hepatitis C antibody test negative (08/03/19) History of breast cancer Metabolic syndrome Mixed hyperlipidemia Other obesity Prediabetes Unspecified osteoarthritis, unspecified site Surgical History Surgical History History of bilateral mastectomy History of cholecystectomy (05/26/08) History of tonsillectomy Family History Family History Father Hypertension Mother Hypertension Diabetes mellitus Other Family history of cardiovascular disease Social History Social History Social History: Caffeine-soda Smoking status: Never smoker Second hand tobacco smoke exposure: Yes Alcohol intake: former Substance use: never Substance use type: does not use Lack of Transportation: No Lack of Food: Never True Current Housing: I Have Housing Concerned About Future Housing: No Difficulty Paying Gas/Electri
== END 2024-03-20 15:38 | disposition home or self-care (01) ==
PROVIDERS: Emergency Provider Nurse Practitioner Family; PCP Family Medicine
DX: J06.9 Acute upper respiratory infection, unspecified (principal); J45.909 Unspecified asthma, uncomplicated; I10 Essential (primary) hypertension; E78.2 Mixed hyperlipidemia; R73.03 Prediabetes; Z85.3 Personal history of malignant neoplasm of breast; Z90.13 Acquired absence of bilateral breasts and nipples; Z79.82 Long term (current) use of aspirin
CPT/HCPCS: 87081; 87880; 99213; G0463

== ENCOUNTER 2024-04-08 08:56 | Outpatient (CLI) | payer MEDICARE, SELFPAY ==
[2024-04-08 14:29] LABS: Hemoglobin 12.2 g/dL (12.0-15.0); Mean Corpuscular HGB Conc 31.3 g/dl (32-36); Mean Corpuscular Hemoglobin 30.1 pg (26-34); Mean Corpuscular Volume 96.3 fl (80-100); Mean Platelet Volume 12.6 fl (7.4-10.4); Platelet Count Result 304 k/mm3 (150-375); Red Blood Count 4.05 M/mm3 (4.2-5.4); White Blood Count 7.3 K/mm3 (4.5-10.0)
[2024-04-08 15:38] LABS: Alanine Aminotransferase 25 U/L (6-35); Albumin Level 4.4 g/dL (3.5-5.1); Alkaline Phosphatase 67 U/L (38-126); Anion Gap 7 mmol/L (4-12); Aspartate Amino Transferase 50 U/L (14-36); Bilirubin,Total 0.3 mg/dL (0.2-1.3); Blood Urea Nitrogen 20 mg/dL (7-17); Calcium 9.3 mg/dL (8.4-10.2); Carbon Dioxide 28 mmol/L (22-30); Chloride 103 mmol/L (98-107); Cholesterol 186 mg/dL (0-200); Estimated Glomerular Filt Rate > 60; Glucose 94 mg/dL (65-110); HDL Direct 52 mg/dL; Potassium 3.9 mmol/L (3.4-5.0); Sodium 138 mmol/L (137-145); Triglycerides 109 mg/dL (<150)
[2024-04-08 15:48] LABS: LDL Cholesterol Direct 116 mg/dL
[2024-04-08 16:01] LABS: Thyroid Stimulating Hormone 0.602 uIU/mL (0.465-4.680)
[2024-04-12 13:19] LABS: Vitamin D 1,25 (OH)2 Total 38 pg/mL (18-72); Vitamin D2 1,25 (OH)2 <8 pg/mL; Vitamin D3 1,25 (OH)2 38 pg/mL
== END 2024-04-08 08:57 | disposition home or self-care (01) ==
PROVIDERS: PCP Family Medicine; Visit Provider Family Medicine
DX: E55.9 Vitamin D deficiency, unspecified (principal); I10 Essential (primary) hypertension; E78.5 Hyperlipidemia, unspecified; E66.9 Obesity, unspecified; Z79.899 Other long term (current) drug therapy
CPT/HCPCS: 36415; 80053; 80061; 82652; 84443; 85027

== ENCOUNTER 2024-08-17 09:22 | Outpatient (CLI) | payer MEDICARE, SELFPAY ==
[2024-08-17 13:15] LABS: Alanine Aminotransferase 19 U/L (6-35); Albumin Level 4.3 g/dL (3.5-5.1); Alkaline Phosphatase 65 U/L (38-126); Anion Gap 8 mmol/L (4-12); Aspartate Amino Transferase 44 U/L (14-36); Bilirubin,Total 0.4 mg/dL (0.2-1.3); Blood Urea Nitrogen 8 mg/dL (7-17); Calcium 9.7 mg/dL (8.4-10.2); Carbon Dioxide 31 mmol/L (22-30); Chloride 99 mmol/L (98-107); Cholesterol 160 mg/dL (0-200); Estimated Glomerular Filt Rate > 60; Glucose 86 mg/dL (65-110); HDL Direct 43 mg/dL; Sodium 138 mmol/L (137-145); Triglycerides 141 mg/dL (<150)
[2024-08-17 13:26] LABS: LDL Cholesterol Direct 80 mg/dL
[2024-08-17 13:28] LABS: Hematocrit 43.2 % (37.0-47.0); Hemoglobin 13.5 g/dL (12.0-15.0); Mean Corpuscular HGB Conc 31.3 g/dl (32-36); Mean Corpuscular Hemoglobin 29.3 pg (26-34); Mean Corpuscular Volume 93.9 fl (80-100); Mean Platelet Volume 12.7 fl (7.4-10.4); Platelet Count Result 236 k/mm3 (150-375); Red Cell Distribution Width 13.6 % (11.5-14.5); White Blood Count 7.6 K/mm3 (4.5-10.0)
[2024-08-17 13:43] LABS: Thyroid Stimulating Hormone 0.844 uIU/mL (0.465-4.680)
== END 2024-08-17 09:23 | disposition home or self-care (01) ==
PROVIDERS: PCP Family Medicine; Visit Provider Family Medicine
DX: I10 Essential (primary) hypertension (principal); E78.5 Hyperlipidemia, unspecified; E66.9 Obesity, unspecified; Z79.899 Other long term (current) drug therapy
CPT/HCPCS: 36415; 80053; 80061; 84443; 85027

== ENCOUNTER 2024-11-16 10:19 | Outpatient (CLI) | payer MEDICARE, SELFPAY ==
[2024-11-16 13:47] LABS: Basophils Absolute Auto 0.1 K/mm3 (0.0-0.1); Basophils Percent Auto 0.9 % (0.2-1.2); Eosinophils Absolute Auto 0.1 K/mm3 (0-0.3); Eosinophils Percent Auto 1.7 % (0-4.4); Hematocrit 44.2 % (37.0-47.0); Hemoglobin 13.9 g/dL (12.0-15.0); Immature Granulocyte Absolute 0.02 K/mm3 (0.00-0.031); Immature Granulocyte Percent A 0.3 % (0-0.5); Lymphocytes Absolute Auto 2.04 K/mm3 (0.9-3.2); Lymphocytes Percent Auto 27.5 % (18.3-44.2); Mean Corpuscular HGB Conc 31.4 g/dl (32-36); Mean Corpuscular Hemoglobin 29.8 pg (26-34); Mean Corpuscular Volume 94.8 fl (80-100); Mean Platelet Volume 12.3 fl (7.4-10.4); Monocytes Absolute Auto 0.9 K/mm3 (0.1-0.6); Monocytes Percent Auto 12.5 % (2.6-8.5); Neutrophils Absolute Auto 4.2 K/mm3 (1.3-6.7); Neutrophils Percent Auto 57.1 % (45.5-73.1); Platelet Count Result 273 k/mm3 (150-375); Red Blood Count 4.66 M/mm3 (4.2-5.4); Red Cell Distribution Width 14.9 % (11.5-14.5); White Blood Count 7.4 K/mm3 (4.5-10.0)
[2024-11-16 14:02] LABS: Sodium 137 mmol/L (137-145)
[2024-11-16 14:12] LABS: CRP < 0.5 mg/dL (<1.0); Rheumatoid Factor < 12.0 IU/ML (<12); Uric Acid 5.5 mg/dL (2.5-7.5)
[2024-11-16 14:13] LABS: LDL Cholesterol Direct 91 mg/dL
[2024-11-16 14:14] LABS: Alanine Aminotransferase 24 U/L (6-35); Albumin Level 4.2 g/dL (3.5-5.1); Alkaline Phosphatase 78 U/L (38-126); Anion Gap 7 mmol/L (4-12); Aspartate Amino Transferase 77 U/L (14-36); Bilirubin,Total 0.6 mg/dL (0.2-1.3); Blood Urea Nitrogen 13 mg/dL (7-17); Calcium 9.6 mg/dL (8.4-10.2); Carbon Dioxide 31 mmol/L (22-30); Chloride 99 mmol/L (98-107); Cholesterol 153 mg/dL (0-200); Estimated Glomerular Filt Rate > 60; Glucose 82 mg/dL (65-110); HDL Direct 44 mg/dL; Potassium 4.1 mmol/L (3.4-5.0); Triglycerides 121 mg/dL (<150)
[2024-11-16 14:23] LABS: Vitamin D 25 Hydroxy 60.5 ng/mL
[2024-11-16 14:42] LABS: Add Urine Microscopic? YES; Appearance Urine Clear (Clear); Bacteria Urine Rare /hpf; Bilirubin Urine Negative (Negative); Blood Urine Negative (Negative); Color Urine Yellow (Yellow); Glucose Urine UA Negative (Negative); Hepatitis B Surface Antigen Negative (Negative); Ketones Urine Negative (Negative); Leukocyte Esterase Ur 2+ LEU/UL (Negative); Need Manual Microscopic Reviewed; Nitrate Urine Negative (Negative); Non Pathogenic Casts 0-2; Protein Urine Negative (Negative); Specific Grav Ur 1.006 (1.001-1.035); Squamous Epithelial Cell Urine None Seen /hpf (Few); Thyroid Stimulating Hormone 0.851 uIU/mL (0.465-4.680); Urobilinogen Urine 0.2 mg/dL (<2.0); WBC Urine 0-5 /hpf (0-3); pH Urine 7.5 (5.0-9.0)
[2024-11-16 14:46] LABS: Erythrocyte Sedimentation Rate 7 mm/hr (0-20); HAV RESULT Negative (Negative); Hepatitis B Core IgM Result Negative (Negative)
[2024-11-16 14:58] LABS: Hepatitis B Surface Anti Res Negative; Hepatitis C Virus Antibody Negative (Negative)
[2024-11-18 12:24] LABS: NIL 0.02 IU/mL; Quantiferon TB Plus, 1T NEGATIVE (NEGATIVE)
[2024-11-18 15:37] LABS: Cyclic Citrullinated Peptide <16 UNITS
--- OUTSIDE RECORDS SUMMARY | 2024-11-18 17:19 | XMS_ITS | Data Portability ---
Author Organization [place] [facility], Main Office Address [address] [place] [address] Care Team Providers Care Automated Logistics Specialist Name Role Phone FANNY VALENTIN Primary Care Provider FANNY VALENTIN Referring Provider [phone] Assessment Encounter Date Assessment Date Assessment LastModified by Organization Details LastModified Time 09/05/2023 09/05/2023 By x-ray and exa m the patient is noted have severe primary osteoarthritis left knee with [id number]-[id number] changes in the medial compartment and the early beginnings of erosion in the medial tibial plateau as well as large marginal osteophytes around the patellofemoral articulation. The narrowing in the medial compartment has advanced significantly from about a 2 mm gap 3 years ago to what I see today. We talked in detail today about treatment options she states for the most part she has daily significant pain that she is tired living with has failed a long course of conservative measures over the years. She has been putting off talking about surgery because of taking care of her but he is now in a memory care unit so she has the ability to take care of herself at this point and she would like surgery. We talked about the surgery including risks benefits limitations and alternatives the procedure itself postop recovery time. She was also given a booklet on total knee arthroplasty today. She would like to see Dr. Harrison in the near future to discuss getting on his surgical schedule. We will get her set up to see him soon she voiced understanding agrees above plan we also talked about getting medical clearance she will talk to her primary care physician she does have a history of hypertension but this is under control by her report. She will call for any further problems difficulties or questions. [email or web address] Not available 09/05/2023 13:17:15 09/24/2023 09/24/2023 1. Patient has severe medial compartment osteoarthritis of her left knee. 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 I have discussed with her that with her extreme obesity and significant hypertension, she is at increased risk for complications with knee replacement surgery at this time and with her severe abductor weakness in both hips, she may have difficulty rehabilitating her knee and likelihood of complaining of anterior knee pain is much higher. I have talked to her about trying to lose weight again. I would recommend that she should for a goal of a BMI of 35 before knee replacement and that would correlate with 185 lb which would be a 25 lb weight loss I would suggest that she accomplishes by focusing regulating her diet in order to lose 1-1/2 lb per week. She may wish to see a dietitian for counseling. I would recommend that she weigh herself daily and tracked this carefully. I have given her instruction she discussing the correlation between calories and weight and we talked about the option of a cortisone shot to trying give her some relief she would like to try that. I have discussed risk of side effects including risk of infection with her. After ChloraPrep prep, 20 mg of Kenalog and 4 cc 0.5% ropivacaine were injected into the left knee without difficulty. I will see her back in 3 months to assess her progress. We will see how she has done with her weight loss. I have discussed her that some patients that have such severe bilateral hip abductor weakness will use a cane in each hand or even use a walker for balance. With weight loss , her abductor weakness will have less effect on her balance deficit. I will see her back in 3 months to assess progress. 40 minutes of time were spent in total care this patient more than half the time spent in hotm-dm-thpe care. Not available 09/27/2023 15:59:45 04/07/2024 04/07/2024 68-year-old female presents for evaluation of her right hip. She reports that 3 weeks ago she had a coughing fit felt like she pulled a muscle in her hip. She rates as 10/10. She has a coarse of diclofenac, Voltaren gel, Advil, and Tylenol, without any improvement. She reports she previously also had a pulled muscle in the same area about 4 years ago, and in 2022 she was diagnosed with some sort of torn tendon. The pain radiates down from the leg into the foot. Is located over lateral aspect of the hip. She also complains of pain in the left knee, reports she has had a history of arthritis and previously gotten cortisone injections as well. She also requests a repeat cortisone injection for that knee. Review of systems per patient questionnaire Physical exam: BMI 41. She has tenderness palpation of the lateral hip, extending from the trochanteric bursa down to the ITB band. She has no pain with hip internal or external rotation, good strength with flexion. Positive Trendelenburg gait.. She has tenderness palpation of medial and lateral joint line of the left knee, 1+ effusion X-rays of the hip were reviewed, demonstrating no acute bony abnormality She has trochanteric bursitis of the hip. We proceeded with a cortisone injection for the hip which she tolerated well. We also send her to physical therapy to work on this. She may follow up as needed. We also repeated the cortisone injection for her left knee which she tolerated well. Not available 04/07/2024 18:16:46 05/26/2024 05/26/2024 69-year-old female presents for follow-up of her bilateral knee osteoarthritis. She still has pain, rated as 8/10. She had an injection on her left side which did not help much back in March. She has done a course of physical therapy and finished last week, with some improvement She has tenderness palpation over the mediolateral joint line as well as over the patella. Antalgic gait. Range of motion 10-130. Stable ligaments. BMI 42 She requested a repeat injection for her right knee which we performed in which she tolerated well. We will renew her physical therapy. She also describes some muscle spasms and we will try some Flexeril for that. She may follow-up as needed. Not available 05/27/2024 16:33:35 Plan of Treatment Reminders Order Date Submit Date Provider Last Modified By Organization Details Last Modified Time Details Appointments None recorded. Lab None recorded. Referral physical therapist referral - eval and treatcall patient to schedule 2023 024 [email or web address] 3 [facility] [place] [facility], [address], [place], [address], 4 08:56:17 physical therapist referral - continue PT 2023 [facility], [address], [place], [address], 4 15:31:54 Procedures injection/a spiration joint/bursa (PROC) - in office procedure, administere d by provider 2022 023 [email or web address] In-Office Order, Internal Use Only DO Not Attach Compendium DO Not Attach Compendium, Do Not Delete/merge, [id number] 3 10:18:55 injection/a spiration joint/bursa (PROC) - in office procedure, administere d by provider 2023 024 [email or web address] 3 In-Office Order, Internal Use Only DO Not Attach Compendium DO Not Attach Compendium, Do Not Delete/merge, [id number] 4 11:43:25 injection/a spiration joint/bursa (PROC) - in office procedure, administere d by provider 2023 024 [email or web address] 3 In-Office Order, Internal Use Only DO Not Attach Compendium DO Not Attach Compendium, Do Not Delete/merge, [id number] 4 11:43:25 injection/a spiration joint/bursa (PROC) 2023 024 [email or web address] 3 In-Office Order, Internal Use Only DO Not Attach Compendium DO Not Attach Compendium, Do Not Delete/merge, [id number] 4 10:14:54 Surgeries None recorded. Imaging XR, knee 2022 023 [email or web address] [facility] [place], [address], [place], [address], 3 15:16:18 XR, hip + pelvis, unilateral 2023 024 [email or web address] [facility] [place], [address], [place], [address], 4 15:33:43 Medication Orders Kenalog 10 mg/mL suspension for injection [address] [facility], [address], [place], [place], [id number], 3 15:03:50 ropivacaine (PF) 5 mg/mL (0.5 %) injection solution [address] [facility]60, [address], [place], [place], [id number], 3 15:03:50 Kenalog 10 mg/mL suspension for injection [address] [facility]27, [address], [place], [place], [id number], 4 23:30:46 Marcaine (PF) 0.5 % (5 mg/mL) injection solution [address] [facility], [address] [place] [address], [id number], 4 23:30:46 Kenalog 10 mg/mL suspension for injection [address] [facility]476, [address] [place], [id number], 4 23:30:46 Marcaine (PF) 0.5 % (5 mg/mL) injection solution [address] [facility]390, [address] [place] [address], [id number], 4 23:30:46 Kenalog 10 mg/mL suspension for injection 2023 [email or web address] Not available 4 23:19:56 Marcaine (PF) 0.5 % (5 mg/mL) injection solution 2023 [email or web address] Not available 4 23:19:56 cyclobenzap rine 10 mg tablet 2023 [email or web address] [facility] #[id number], [address] [facility], [place], [place], [id number], 4 23:19:56 Patient TargetsNo targets recorded. Patient InstructionsNo instructions recorded. Reason for Referral Physical Therapist Referral for Trochanteric bursitis of right hip eval and treatcall patient to schedule Referring Physician: Brian Elias, Orthopedic Surgery, Encounter Date: 04/07/2024 Physical Therapist Referral for Pain of bilateral knee joints continue PT Referring Physician: Brian Elias, Orthopedic Surgery, Encounter Date: 05/26/2024 Results Created Date Observation Date Name Description Value Unit Range Abnormal Flag Note LastModifiedBy Organization Detail LastModifiedTime 09/05/20 23 XR, knee No observ ation record ed. [email or web address] [facility] [place] [address], [place], [address], 09/05/2023 13:19:20 04/07/20 24 XR, hip + pelvi s, unila teral No observ ation record ed. [email or web address] [facility] [place] [address], [place], [address], 04/07/2024 10:47:53 Result Notes None recorded. Problems Name Problem SNOMED Code Status Onset Date Resolution Date Notes Provider Name and Address Organization Details Recorded Time Pain of left knee joint 1130917310170 07 Active 2022 SIS Rivas, [place] [facility] 3 12:41:16 Osteoarthri tis of left knee joint 6700364378471 09 Active 2022 CAIO Monaco [address], [address], [place], [address], [facility] 3 13:17:23 Osteoarthri tis of right knee joint 4634677234148 00 Active 2022 CAIO Monaco [address], [address], [place], [address], [facility] 3 13:19:31 Pain in right hip joint 0551914267683 02 Active 2023 SIS Rivas, [facility] 4 10:47:48 Trochanteri c bursitis of right hip 9726437475928 00 Active 2023 Arelis tamayo, [facility] 4 11:40:02 Pain of bilateral knee joints 4049113495551 04 Active 2023 PATY Casas null, [facility] 4 09:35:02 Bilateral osteoarthri tis of knees 5145706378641 07 Active 2023 Arelis tamayo, [facility] 4 10:13:33 Problem Notes None recorded. Procedures Surgical History Date Name Laterality Status Provider Name and Address Organization Details Recorded Time 4 Ortho - Cortisone Injection completed Brian Elias MD [address], [facility] [address], [place], [address], [facility] 05/27/2024 16:33:44 4 Ortho - Cortisone Injection completed Brian Elias MD [address], [address], [place], [address], [facility] 04/07/2024 18:17:00 Hysterectomy, Partial completed Carolina Martinez CNA [place] [facility] [place] [facility] 09/05/2023 12:39:22 Breast Surgery completed SIS Hanson - [facility] 09/05/2023 12:39:57 Cataract Surgery completed PATRICIA RivasA [place] [facility] [place] [facility] 09/05/2023 12:40:24 Imaging Results Imaging Date Name Status LastModified by Organiz ation Details LastModified Time 09/05/2023 XR, knee completed [email or web address] [facility] [place] [address], [place], [address], 09/05/2023 13:19:20 04/07/2024 XR, hip + pelvis, unilateral completed [email or web address] [facility] [place] [address], [place], [address], 04/07/2024 10:47:53 Procedure Notes None recorded. Medical Equipment None Reported. Allergies Allergen ID Allergen Name Allergen Category Reaction Reaction Severity Criticality Documentation Date Start Date Code Code System Note Provider Name and Address Organization Details Recorded Time 74340 tetracycl ine medicatio n rash Not available Not available 12/25/2022 39729 RxNorm blist ering Carolina Martinez, [employer] null, [place] [facility] [place] [facility] [employer] 12:30:25 76814 Product containin g penicilli n and antibioti c (product) medicatio n rash swelling Not available Not available Not available 12/25/2022 53716 05 [facility]ED [facility] 21:50:55 93014 red dye food,medi cation rash Not available Not available 09/05/2023 UNK contr astbl ister ing Carolina Martinez, [employer] null, [place] [facility] [place] [facility] 3 12:31:13 Medications Name Sig Start Date Stop Date Status Note LastModified by Organization Details LastModified Time cyclobenzap rine 10 mg tablet TAKE 1 TABLET BY MOUTH THREE TIMES DAILY NEEDED active Not Available Not Available No t Available hydralazine 10 mg tablet TAKE 2 TABLETS BY MOUTH THREE TIMES DAILY active Not Available Not Available No t Available candesartan 32 mg-hydrochl orothiazide 12.5 mg tablet 09/05 completed Not Available Not Available Not Available clindamycin HCl 300 mg capsule 12/02 completed Not Available Not Available Not Available verapamil ER 360 mg 24 hr capsule,ext ended release TAKE 1 CAPSULE BY MOUTH DAILY 09/05 completed Not Available Not Available Not Available azithromyci n 250 mg tablet 12/02 completed Not Available Not Available Not Available ofloxacin 0.3 % eye drops 09/05 completed Not Available Not Available Not Available hydrocodone 5 mg-acetamin ophen 325 mg tablet TAKE 1 TABLET BY MOUTH EVERY 4 TO 6 HOURS NEEDED FOR PAIN active Not Available Not Available No t Available meloxicam 15 mg tablet Take 1 tablet every day by oral route. 09/05 completed Not Available Not Available Not Available prednisone 20 mg tablet 09/05 completed Not Available Not Available Not Available sertraline 100 mg tablet TAKE 1 TABLET BY MOUTH DAILY active Not Available Not Available No t Available acetaminoph en 300 mg-codeine 30 mg tablet 09/05 completed Not Available Not Available Not Available ketorolac 0.5 % eye drops 09/05 completed Not Available Not Available Not Available prednisolon e acetate 1 % eye drops,suspe nsion 09/05 completed Not Available Not Available Not Available pravastatin 10 mg tablet TAKE 1 TABLET BY MOUTH EVERY DAY AT BEDTIME active Not Available Not Available No t Available Kenalog 10 mg/mL suspension for injection in office 2023 active [facility]: 0003- 0494- 20 Not Available Not Available Not Available cephalexin 500 mg capsule 12/02 completed Not Available Not Available Not Available diclofenac potassium 50 mg tablet TAKE 1 TABLET BY MOUTH TWICE DAILY NEEDED FOR PAIN active Not Available Not Available No t Available candesartan 32 mg tablet TAKE 1 TABLET BY MOUTH DAILY active Not Available Not Available No t Available sertraline 25 mg tablet TK 1 T PO D 09/05 completed Not Available Not Available Not Available montelukast 10 mg tablet TAKE 1 TABLET BY MOUTH DAILY active Not Available Not Available No t Available magnesium 250 mg tablet Take 1 tablet every day by oral route. active Not Available Not Available No t Available hydrochloro thiazide 25 mg tablet TAKE 1 TABLET BY MOUTH EVERY MORNING active Not Available Not Available No t Available diclofenac sodium 50 mg tablet,sierra yed release 06/26 completed Not Available Not Available Not Available metoprolol succinate ER 25 mg tablet,exte nded release 24 hr TAKE 1 TABLET BY MOUTH DAILY active Not Available Not Available No t Available levofloxaci n 750 mg tablet TAKE 1 TABLET BY MOUTH DAILY active Not Available Not Available No t Available methylpredn isolone 4 mg tablets in a dose pack FOLLOW PACKAGE DIRECTION S 09/05 completed Not Available Not Available Not Available albuterol sulfate HFA 90 mcg/actuati on aerosol inhaler INHALE 2 PUFFS BY MOUTH EVERY 4 HOURS NEEDED active Not Available Not Available No t Available fluticasone propionate 50 mcg/actuati on nasal spray,suspe nsion ADMINISTE R 2 SPRAY IN EACH NOSTRIL EVERY DAY 09/05 completed Not Available Not Available Not Available verapamil ER 240 mg 24 hr capsule,ext ended release TAKE 1 CAPSULE BY MOUTH TWICE DAILY active Not Available Not Available No t Available amoxicillin 875 mg-potassiu m clavulanate 125 mg tablet 03/28 completed Not Available Not Available Not Available olmesartan 40 mg-hydrochl orothiazide 12.5 mg tablet 12/02 completed Not Available Not Available Not Available Marcaine (PF) 0.5 % (5 mg/mL) injection solution in office 2023 active Not Available Not Available Not Avai lable Multivitami n 50 Plus tablet Take 1 tablet every day by oral route. active Not Available Not Available No t Available Voltaren active Not Available Not Avai lable Not Available Tylenol PM active Not Available Not Av ailable Not Available lidocaine (PF) 10 mg/mL (1 %) injection solution In office injection administe red by the provider 09/05 completed [facility]: 0409- 4276- [phone] Not Available Not Available Not Available budesonide- formoterol HFA 160 mcg-4.5 mcg/actuati on aerosol inhaler INHALE 2 PUFFS BY MOUTH TWICE DAILY - RINSE MOUTH AFTER USE active Not Available Not Available No t Available cholecalcif jennifer (vitamin D3) 1,250 mcg (50,000 unit) capsule TK 1 C PO Q WEEK 09/05 completed Not Available Not Available Not Available Suprep Bowel Prep Kit 17.5 gram-3.13 gram-1.6 gram oral solution 12/02 completed Not Available Not Available Not Available ropivacaine (PF) 5 mg/mL (0.5 %) injection solution in office 2022 active Not Available Not Available Not [facility] USE WITH INHALERS DIRECTED active Not Available Not Available No t Available Fluad 2018- 65yr up(PF)45 mcg(15 mcgx3)/0.5 mL intramuscul ar syringe ADM 0.5ML IM UTD 12/02 completed Not Available Not Available Not Available aspirin 81 mg capsule Take 1 capsule every day by oral route. active Not Available Not Available No t Available Vitals Date Recorded Body height Body mass index (BMI) Body weight Provider Name and Address Organization Details Last Updated DateTime 09/05/2023 154.94 cm 38.8 kg/m2 04747.59 g Carolina Martinez CNA [facility] 09/05/2023 12:47:55 Date Recorded Body height Body mass index (BMI) Body weight Provider Name and Address Organization Details Last Updated DateTime 09/24/2023 153.42 cm 40.6 kg/m2 71029.55 g Armida Andrew [facility] 09/24/2023 10:00:37 Date Recorded Body height Body mass index (BMI) Body weight Provider Name and Address Organization Details Last Updated DateTime 04/07/2024 152.4 cm 41 kg/m2 97231.4 g Carolina Martinez CNA [facility] 04/07/2024 10:47:03 Date Recorded Body height Body mass index (BMI) Body weight Provider Name and Address Organization Details Last Updated DateTime 05/26/2024 152.4 cm 42 kg/m2 14708.36 g PATY Casas [facility] 05/26/2024 09:33:46 Social History Question Answer Notes LastModified by Organizat ion Details LastModified Time Tobacco Smoking Status Never Smoker SIS Rivas [facility] 09/05/2023 12:38:54 What Is Your Level Of Alcohol Consumption? None [email or web address] Information not available 09/05/2023 What Was The Date Of Your Most Recent Tobacco Screening? 05/26/2024 Information not available 05/26/2024 Sex: Unknown Functional Status None recorded. Mental Status None recorded. Family History Relationship Description Onset Age of this Age Resolved Age Notes LastModified by Organization Details LastModified Time Father Family history of malignant neoplasm [email or web address] Not available 2022 12:37:50 Father Hypertensive disorder [email or web address] Not available 2022 12:38:03 Mother Family history of malignant neoplasm [email or web address] Not available 2022 12:37:50 Mother Hypertensive disorder [email or web address] Not available 2022 12:38:04 Medical History Condition Response ARTHRITIS Y CANCER: SPECIFY Y USE OF NSAIDS Y HYPERTENSION Y Gynecological HistoryNo gynecological history recorded. Obstetrics History GPAL:G 0 P 0 0 0 0 Past Encounters Encounter ID Performer Location Encounter Start Date Encounter Closed Date Diagnosis/Indication Diagnosis SNOMED-CT Code Diagnosis ICD10 Code Diagnosis Note [id number] CAIO Monaco [facility] [place] [address] [place] [address] 09/05/2023 12:07:11 09/05/2023 13:13:45 Pain of left knee joint 5217478502 73017 M25.562 Osteoarthr itis of left knee joint 6834857826 11972 M17.12 Osteoarthr itis of right knee joint 2245387442 20445 M17.11 [id number] Anshu Harrison MD [facility] [place] [address] [place] [address] 09/24/2023 08:59:01 09/29/2023 10:58:30 Osteoarthritis of left knee joint 1843417551 42617 M17.12 [id number] Brian Elias MD [facility] [place] [address] [place] [address] 04/07/2024 10:40:46 04/07/2024 11:50:35 Pain in right hip joint 6307072553 35727 M25.551 Trochanter ic bursitis of right hip 1765699232 72848 M70.61 Osteoarthr itis of left knee joint 5042297905 10410 M17.12 [id number] Brian Elias MD [facility] [place] [address] [place] [address] 05/26/2024 09:29:49 05/26/2024 10:11:40 Pain of bilateral knee joints 5042113683 26267 M25.569 Bilateral osteoarthritis of knees 1011538188 09970 M17.0 Health Concerns Section Related Observation LastModified by Organization Detai ls LastModified Time None Recorded Concern Status LastModified by Organization Details LastModified Time None Recorded Advance Directives Directive None Recorded Payers Encounter Date Sequence Insurance Name Policy Number Policy Herrera Covered Member ID Herrera Member ID Guarantor Name 09/05/2023 1 [place] Muna Gomez Cross [id number] 1 Muna Cross 09/05/2023 2 [place] [id number] Muna Gomez Cross [id number] Muna Cross 09/24/2023 1 [place] Muna [place] [id number] 1 Muna Cross 09/24/2023 2 [place] [id number] Muna Gomez Cross [id number] Muna Cross 04/07/2024 1 [place] Muna [place] Cross [id number] 1 Muna Cross 04/07/2024 2 [place] [id number] Muna Gomez Cross [id number] Muna Cross 05/26/2024 1 [place] Muna Gomez Cross [id number] 1 Muna Cross 05/26/2024 2 [place] [id number] Muna Gomez Cross [id number] Muna Enriquez Notes Date Note Type Note Provider Name and Address Organization Details Recorded Time 3 text/html patient is a 68-year-old female who presents with chronic advancing fairly severe left knee pain over the last several years. She has not been here for few years she has had previous cortisone injections which gave her some relief but really nothing significant. She has also over the years done therapy she currently takes diclofenac 50 mg b.i.d. again without significant relief. She uses a cane for support states she has a hard time even walking down the mailbox which is a very short walk for her. She cannot go about her daily activities in terms of house cleaning or trying to go to the grocery store this causes pretty significant pain in the knee causes her walk with a limp she has throbbing and aching that occasionally keeps her awake at night. She lives alone depends on herself to do most things and is to the point where she is tired of living with her knee the way it is. Pain has progressively worsened over time she is also noting some varus deformity and grinding crepitation. Denies any effusion or swelling no past trauma to the knee. She comes in today stating that she would like to talk about knee replacement surgery. We will get new x-rays today as it has been 3 years since her last x-rays.Past medical history sheet was reviewed and signed on intake sheet today's date drug allergies current medications family social history previous surgical history 10 point review of systems was reviewed and discussed in detail today with the patient. CAIO Monaco [address] [facility] [facility] [address], [place], [address], [place] [facility] 09/05/2023 13:24:28 3 text/html Patient is a 68-year-old female referred by Dr. Valentin for evaluation of her left knee. She has been seen Ted Quezada. Her last cortisone shot was about 3 years ago. She has been using a cane since age 48. She complains that the knee has been giving way and she has fallen twice. She has diffuse anterior knee pain. She takes diclofenac potassium 50 mg usually just 1 pill per day occasionally she will take to. She sometimes adds Advil to the mix and I have cautioned her to never do that. She also has a history of significant hypertension. She takes hydralazine in addition to hydrochlorothiazide metoprolol and candesartan. She has had bilateral mastectomies for breast cancer diagnosed in 2009. 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 Sometime she will cut her toes and not know. She has a history of back arthritis and scoliosis. She has suffered from extreme obesity for many years. Eight years ago she weighed 300 lb. She lost 145 lb on a special liquid diet over a period of 9 months through [facility]. She is 5 ft 3 eights inches in height and today she weighs 210.6 lb for a BMI of 40.6. She had x-rays of her left knee on 09/05/2023. She has advanced medial compartment osteoarthritis in the left knee with bone where on both medial tibial plateau and medial femoral condyle and sclerotic changes. 7? ? ? anatomic axis varus alignment. Anshu Harrison MD [address] [facility], [address] [address], [place], [address], [place] [facility] 09/27/2023 16:00:29 OBGyn Episode No OBEpisode recorded.
--- OUTSIDE RECORDS SUMMARY | 2024-11-18 17:19 | XMS_ITS ---
Author Organization [facility] Address [address] [place] [address] Phone Care Team Providers Care Body Artist Name Role Phone Farhana Hardy DO Primary Care Provider [phone] Active Problems Patient Care Coordination No te Formatting of this note migh t be different from the original. Primary Care: Jose Luis Camacho MD Referring Provider: Jose Luis Camacho MD [address] [place] [address] Other: Other: Other:Pt denies any family hx of ovarian ca Problem Noted Date Diagnosed Date Obesity (BMI 35.0-39.9 without comorbidity) 12/26 History of right mastectomy 01/24/2016 Overview (01/24/2016): prophylactic mastectomy Genetic testing 10/27/2013 Overview (11/25/2013): moraima neg Breast Cancer left T2 N0, 200906/12/2010 Overview (01/01/2016): Core biopsy left breast 06-06-2010, invasive ductal cancer grade 3, ER/MO negative, HER-2/liang negative, proliferative rate 77%. Left mastectomy with sentinel node biopsy 07-12-2010, 3.8 cm invasive ductal carcinoma, 4 sentinel lymph nodes, one of which contained isolated tumor cells T2 N0 (IHC positive) Stage: pT2, N0 (i+) Date of diagnosis: 06/12/10 Diagnosis: left 3.8 cm 1/4 LN (isolated cells) TRIPLE NEGATIVE Surgeon: Juan Surgery: 07/12/10: left TM/SLN; 3/7/16: right prophylacitc mastectomy Medical Oncologist: Luis Chemotherapy: FEC/T Every 3 weeks for 6 doses Radiation: none Genetics: BRCA 1/2, moraima negative HTN (hypertension) Asthma Osteoarthrosis GERD (gastroesophageal reflux disease) Current Treatment and Therapy Plans No current plan information found. Past Treatment and Therapy Plans No past plan information found. Lifetime Dose Tracking * Chemical Lifetime Dose Automatic Entry Manual Entr y epirubicin 158.741 mg/m2 (530 mg) 158.741 mg/m2 (530 mg) 0 mg/m2 (0 mg)
--- OUTSIDE RECORDS SUMMARY | 2024-11-18 17:19 | XMS_ITS | Clinical Summary ---
Author Organization [facility] [employer] Address [address] [place] [address] Care Team Providers Care Servicer Name Role Phone Jose Luis Camacho MD Primary Care Provider [phone] Source Comments [facility] [employer],non-owned Affiliates and Associated Physician Practices is amultiple site organization consisting of ambulatory clinics and hospital sitesin [place], [place], [place] and [place]. This disclosure is being madepursuant to the Care Everywhere program and may not contain all information available regarding this patient. Last updated 18.[employer] Allergies Active Allergy Reactions Criticality Noted Date Comments Erythromycin GI Discomfort 11/18/2017 Metronidazole 11/18/2017 Penicillins 11/18/2017 Tetracycline 11/18/2017 Medications * Be aware that medications may not be up to date on this document. Alwaysverify current medications with the patient. Medication Sig Dispensed Refills Start Date End Date Status Verapamil HCl CR 360 MG Active candesartan-hydroCHLOR Othiazide (ATACAND HCT) 32-12.5 MG tablet Take 1 tablet by mouth once daily Active Cholecalciferol (D3-1000) 1000 UNITS Acti ve ASPIRIN 81 PO Active montelukast (SINGULAIR) 10 MG tablet Take 10 mg by mouth at bedtime Active ALBUTEROL SULFATE IN Acti ve Family History Medical History Relation Name Comments Cancer - Lung Father Cancer - Ovarian Maternal Grandmother Cancer - Breast Mother Relation Name Status Comments Father Maternal Grandmother Mother Social History Tobacco Use Types Packs/Day Years Used Date Smoking Tobacco: Never Smokeless Tobacco: Never Sex and Gender Information Value Date Recorded Sex Assigned at Not on file Gender Identity Not on file Sexual Orientation Not on file Last Filed Vital Signs Vital Sign Reading Time Taken Comments Blood Pressure 142/90 03/15/2018 1:00 PM CDT Pulse 78 03/15/2018 12:44 PM CDT Temperature 37.2 ??C (98.9 ??F) 03/15/2018 1 2:44 PM CDT Respiratory Rate 16 03/15/2018 12:4 4 PM CDT Oxygen Saturation 97% 11/18/2017 10: 37 AM 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 Inhaled Oxygen Concentration - - Weight 88.9 kg (196 lb) 03/15/2018 12:4 4 PM CDT Height 156.2 cm (5' 1.5 ) 03/15/2018 12 :44 PM CDT Body Mass Index 36.43 03/15/2018 12:44 PM CDT Plan of Treatment Health Maintenance Due Date Last Done Comments BONE DENSITY TESTING 1955 COLOGUARD (AGES 45-75) - COL ON CA SCREENING 1955 COLON MONITORING 1953 COLONOSCOPY - COLON CA SCREENING 1953 CT COLONOGRAPHY - COLON CA SCREENING 1953 Colorectal Cancer Screening 1953 FIT - COLON CA SCREENING 1953 FLEX SIG - COLON CA SCREENING 1953 LIPID TESTING 1953 MAMMOGRAM 1953 HEPATITIS C SCREENING 05/11/1971 DTAP/TDAP/TD VACCINES (1 - Tdap) 1972 PNEUMOCOCCAL VACCINE 50+ (1 of 1 - PCV) 2003 ZOSTER VACCINE (1 of 2) 2003 SCREENING FOR DIABETES 11/18/2017 COVID-19 VACCINE (1 - 2023-2 5 season) 2024 INFLUENZA VACCINE (#1) 2024 DEPRESSION SCREENING 10/27/2024 Respiratory Syncytial Virus (RSV) Vaccine Pt: or over 60 yrs (1 - 1-dose 75+ series) 2028 HEPATITIS B VACCINE Aged Out No longe r eligible based on patient's age to complete this topic HIB VACCINE Aged Out No longer eligi ble based on patient's age to complete this topic HPV VACCINE Aged Out No longer eligi ble based on patient's age to complete this topic MENINGOCOCCAL (Group B) VACCINE Aged Out No longer eligible based on patient's age to complete this topic MENINGOCOCCAL VACCINE Aged Out No scar gosia eligible based on patient's age to complete this topic Care Teams Servicer Relationship Specialty Start Date End Date Jose Luis Camacho MD [address] [place] [address] PCP - General Family Medicine 11/18/17
--- OUTSIDE RECORDS SUMMARY | 2024-11-18 17:19 | XMS_ITS | Patient Health Summary ---
Author Organization [facility] Address [address] [place] [address] Care Team Providers Care Nuclear Weapons Specialist Name Role Phone Jose Luis Camacho MD Primary Care Provider [phone] Note from [facility],non-owned Affiliates and Associated Physician Practices is amultiple site organization consisting of ambulatory clinics and hospital sitesin [place], [place], [place] and [place]. This disclosure is being madepursuant to the Care Everywhere program and may not contain all information available regarding this patient. Last updated 18.[facility] [employer] Allergies * Erythromycin(GI Discomfort) * Metronidazole * Penicillins * Tetracycline Medications * Be aware that medications may not be up to date on this document. Alwaysverify current medications with the patient. 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-97 Inhaled Oxygen Concentration - - Weight 88.9 kg (196 lb) 03/15/2018 12:4 4 PM CDT Height 156.2 cm (5' 1.5 ) 03/15/2018 12 :44 PM CDT Body Mass Index 36.43 03/15/2018 12:44 PM CDT Procedures * URINALYSIS AUTO - POINT OF CARE (AMB) STL(Performed 03/15/2018) Performed for Acute cystitis with hematuria * CULTURE URINE(Performed 03/15/2018) Performed for Acute cystitis with hematuria * INFLUENZA A+B - POINT OF CARE (AMB)(Performed 11/18/2017) Performed for Acute suppurative otitis media of right ear without spontaneous rupture of tympanic membrane, recurrence not specified Results * URINALYSIS AUTO - POINT OF CARE (AMB) STL (03/15/2018 1:05 PM CDT) Clarity UA POCT clear Color UA POCT yellow Leukocyte UA 70+ Negative Nitrite UA POCT negative Negative Urobilinogen UA 0.1 0.1 - 1.0 Protein UA POCT negative Negative pH UA 6.5 5.0 - 8.0 pH units Blood UA 5-10 Negative Specific [place] UA POCT 1.005 1.002 - 1.030 Ketone UA Negative Negative Bilirubin UA POCT negative Negative Glucose UA negative Negative Expiration Date 06 07 2019 Lot # [id number] Verified Yes Yes Urine URINE / Unknown 03/15/2018 1 :05 PM CDT Guanaco Jefferson APRN-[facility] - POINT OF DE RE ORDERABLES * (ABNORMAL) CULTURE URINE (03/15/2018 12:55 PM CDT) Urine Culture Routine Final report(A) [facility] ACCOUNT BILL Result 1 Enterococcus faecalis(A) [facility] ACCOUNT BILL Comment: 10,000-25,000 colony forming units per mL Note: this isolate is vancomycin-susceptible. This information is provided for epidemiologic purposes only: vancomycin is not among the antibiotics recommended for therapy of urinary tract infections caused by Enterococcus. For Enterococcus species, aminoglycosides (except for high-level resistance screening), cephalosporins, clindamycin, and trimethoprim-sulfamethoxazole are not effective clinically. (CLSI, H812-Y62, 2016) Antimicrobial Susceptibility [facility] ACCOUNT BILL Comment: ? S = Susceptible; I = Intermediate; R = Resistant ? P = Positive; N = Negative ?MICS are expressed in micrograms per mL ?? Antibiotic ? RSLT#1 ?RSLT#2 ?RSLT#3 ?RSLT#4 Ciprofloxacin ?S Levofloxacin ? S Nitrofurantoin ? S Penicillin ? S Tetracycline ? R Vancomycin ? S Urine URINE SPECIMEN OBTAINED BY CLEAN CATCH PROCEDURE / Unknown 03/15/2018 12:55 PM CDT 03/16/2018 Narrative Resulting Agency Comment [facility] [address] [facility] ??[facility] [id number] Guanaco Jefferson APRN[facility] - MICROBIOLOG Y ORDERABLES [facility] ACCOUNT BILL [address] [place] [address] * INFLUENZA A+B - POINT OF CARE (AMB) (11/18/2017) Influenza A Antigen Rapid Negative Negative Influenza B Antigen Rapid Negative Negative Influenza Internal Control Present NEGATIVE - POSITIVE Influenza Lot Number [id number] Influenza Expiration Date 07/21/19 Other NASOPHARYNGEAL SWAB / Unknown 11/18/2017 Daniela A Sandoval REFRIGERATED CARGO CLERK-[facility] - POINT OF CARE ORDERABLES Care Teams Nuclear Weapons Specialist Relationship Specialty Start Date End Date Jose Luis Camacho MD [address] [place] [address] PCP - General Family Medicine 11/18/17
--- OUTSIDE RECORDS SUMMARY | 2024-11-18 17:19 | XMS_ITS | Referral Summary ---
Author Organization [facility] [employer] Address [address] [place] [address] Care Team Providers Care Laboratory Secretary Name Role Phone Jose Luis Camacho MD Primary Care Provider [phone] Source Comments [facility] [employer],non-owned Affiliates and Associated Physician Practices is amultiple site organization consisting of ambulatory clinics and hospital sitesin [place], [place], [place] and [place]. This disclosure is being madepursuant to the Care Everywhere program and may not contain all information available regarding this patient. 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
--- OUTSIDE RECORDS SUMMARY | 2024-11-18 17:19 | XMS_ITS | Clinical Summary ---
Author Organization [facility] [place] Address [address] [facility] [place] [address] Phone Care Team Providers Care Body And Fender Mechanic Apprentice Name Role Phone Farhana Hardy DO Primary Care Provider [phone] Allergies Active Allergy Reactions Criticality Noted Date Comments Erythromycin Other (See Comments),Nausea and Vomiting Low 06/05/2010 Iodinated Contrast Media Rash High 12/16/2019 Metronidazole Other (See Comments) 06/05/2010 blisters Morphine Nausea and Vomiting,Dizziness Low 01/01/2016 Penicillins Swelling Low 06/05/2010 Tetracycline Other (See Comments) 06/05/2010 blisters Medications montelukast (SINGULAIR) 10 mg Oral tabletIndicatio ns:Lump or mass in breast,Abnormal mammogram, unspecified,Ult rasound scan abnormal,Family history of breast cancer Take 10 mg by mouth daily. Active calcium carbonate + vitamin D (CALCIUM 600 + D) 600 mg(1,500mg) -400 unit Oral TabIndications: Arthritis,Breas t cancer (CMS/HCC) Take by mouth 2 times daily. Active ACETAMINOPHEN/D IPHENHYDRAMINE (TYLENOL PM ORAL) Take by mouth. Activ e aspirin (RIGO) 81 mg Oral TabIndications: Status post mastectomy,Elinor st cancer (CMS/HCC) Take by mouth. Activ e multivitamin (DAILY-TRUDY) Oral tabletIndicatio ns:Status post mastectomy,Elinor st cancer (CMS/HCC) Take 1 Tab by mouth daily. Active diclofenac potassium (CATAFLAM) 50 mg TabletIndicatio ns:Malignant neoplasm of left female breast, unspecified site of breast (CMS/HCC),Weigh t loss of more than 10% body weight,Vitamin D deficiency Take 50 mg by mouth 2 times daily. Active acetaminophen (TYLENOL) 500 mg tablet Take 500 mg by mouth every 6 hours as needed. Active LORATADINE (CLARITIN ORAL) Take by mouth. Active ALBUTEROL SULFATE INHALATION Take by inhalation. Active triamcinolone acetonide (Kenalog) 10 mg/mL Suspension Kenalog 10 mg/mL suspension for injection In office injection administered by the provider Active lidocaine 1 % (XYLOCAINE) Solution lidocaine (PF) 10 mg/mL (1 %) injection solution In office injection administered by the provider Active verapamiL (VERELAN) 240 mg Sustained Release 24 hour capsule Take 240 mg by mouth 2 times daily. 3 Active sertraline (ZOLOFT) 100 mg tablet Take 100 mg by mouth daily. Active candesartan (ATACAND) 32 mg Tablet Take 32 mg by mouth daily. 3 Active Symbicort 160-4.5 mcg/actuation HFA Aerosol Inhaler INHALE 2 PUFFS TWICE DAILY 3 Active Active Problems Patient Care Coordination No te Formatting of this note migh t be different from the original. Primary Care: Jose Luis Camacho MD Referring Provider: Jose Luis Camacho MD [address] [place] [address] Other: Other: Other:Pt denies any family hx of ovarian ca Problem Noted Date Diagnosed Date Obesity (BMI 35.0-39.9 without comorbidity) 12/26 History of right mastectomy 01/24/2016 Overview (01/24/2016): prophylactic mastectomy Genetic testing 10/27/2013 Overview (11/25/2013): moraima neg Breast Cancer left T2 N0, 200906/12/2010 Overview (01/01/2016): Core biopsy left breast 06-06-2010, invasive ductal cancer grade 3, ER/CA negative, HER-2/liang negative, proliferative rate 77%. Left mastectomy with sentinel node biopsy 07-12-2010, 3.8 cm invasive ductal carcinoma, 4 sentinel lymph nodes, one of which contained isolated tumor cells T2 N0 (IHC positive) Stage: pT2, N0 (i+) Date of diagnosis: 06/12/10 Diagnosis: left 3.8 cm 1/4 LN (isolated cells) TRIPLE NEGATIVE Surgeon: Juan Surgery: 07/12/10: left TM/SLN; 01/01/16: right prophylacitc mastectomy Medical Oncologist: Luis Chemotherapy: FEC/T Every 3 weeks for 6 doses Radiation: none Genetics: BRCA 1/2, moraima negative HTN (hypertension) Asthma Osteoarthrosis GERD (gastroesophageal reflux disease) Family History Medical History Relation Name Comments Cancer Father 70's brain Heart Disease Father 70's Lung Cancer Father 70's 70's Prostate Cancer Father 70's Stroke Father 70's Breast Cancer Maternal Aunt 1 60 Lung Cancer Maternal Aunt 2 Ovarian Cancer Maternal Grandmother Breast Cancer Mother 48 Other Mother diabetes Breast Cancer Paternal Aunt 1 50's Ovarian Cancer Paternal Aunt 1 60's Breast Cancer Paternal Aunt 2 60's Breast Cancer Paternal Aunt 3 60's Breast Cancer Paternal Aunt 4 60's Breast Cancer Paternal Aunt 5 Breast Cancer Paternal Grandmother Relation Name Status Comments Brother Alive Father 70's Maternal Aunt 1 Maternal Aunt 2 Maternal Grandmother Mother Paternal Aunt 1 Paternal Aunt 2 Paternal Aunt 3 Paternal Aunt 4 Paternal Aunt 5 Paternal Grandmother Sister Alive Social History Tobacco Use Types Packs/Day Years Used Date Smoking Tobacco: Never Smokeless Tobacco: Never Alcohol Use Standard Drinks/Week Comments No 0 (1 standard drink = 0.6 oz pur e alcohol) mod Comments No Sex and Gender Information Value Date Recorded Sex Assigned at Not on file Legal Sex Female 5:55 AM SUPERVISOR PASTE MIXING Gender Identity Not on file Sexual Orientation Not on file Occupation Industry Job Start Date Job End Date Not on file Not on file Not on file Not on file Last Filed Vital Signs Vital Sign Reading Time Taken Comments Blood Pressure 194/97 06/25/2023 11:12 AM CDT Pulse 71 06/25/2023 10:52 AM CDT Temperature 36.7 ??C (98.1 ??F) 06/25/2023 10:52 AM C DT Respiratory Rate 10 06/25/2023 10:52 AM CDT Oxygen Saturation 100% 06/25/2023 10:52 AM CDT Inhaled Oxygen Concentration - - Weight 89.8 kg (198 lb) 06/25/2023 10:52 AM CDT Height 154.9 cm (5' 1 ) 12/18/2021 9:55 AM SUPERVISOR PASTE MIXING Body Mass Index 37.41 12/18/2021 9:55 AM SUPERVISOR PASTE MIXING Plan of Treatment Upcoming Encounters Date Type Department Care Team (Late st Contact Info) Description 03/17/2025 11:00 AM CDT Office Visit [facility] [address] [facility] [address] [place] [address] Oziel Matt MD [address] [facility] [address] [place] [address] Health Maintenance Due Date Last Done Comments DTAP/TDAP/TD VACCINES (1 - Tdap) 1972 PNEUMOCOCCAL VACCINE 65+ YEA RS (1 of 2 - PCV) 1972 Traditional Medicare (ACO) A nnual Wellness Visit 1972 COLORECTAL SCREENING 1998 Colorectal Cancer Screening 1998 FIT-DNA Q 3 years 1998 FIT/FOBT Q 1 year 1998 Flex Sig/CT Colonography Q 5 years 1998 ZOSTER VACCINE (1 of 2) 2003 RSV VACCINE (60+ or ) (1 - Risk 60-74 years 1-dose series) 2013 BREAST CANCER SCREENING 10/10/2016 10/10/20 15, 09/12/2015, 09/12/2015, Additional history exists INFLUENZA VACCINE (#1) 2024 OSTEOPOROSIS SCREENING Completed 6, 09/06/2014, 06/01/2012 Procedures Procedure Name Priority Date/Time Associated Diagnosis Comments XR DEXA BONE DENSITY AXIAL 1 OR MORE SITES Routine 10/14/2016 Post-menopausal MAMMO DIAG UNI RIGHT 3D JODI W OR WO CAD Routine 10/10/2015 9:30 AM SUPERVISOR PASTE MIXING Malignant neoplasm of left female breast, unspecified site of breast (CMS/HCC) Breast calcification, left from Last 3 Months or Most Recently Relevant to Health Maintenance Results * XR DEXA BONE DENSITY AXIAL 1 OR MORE SITES (10/14/2016) T-SCORE FEMUR -1.0 - 1.0 EXTER NAL RADIOLOGY T-SCORE FEMUR (LEFT) -1.0 - 1.0 EXTERNAL RADIOLOGY T-SCORE FEMUR (RIGHT) -1.0 - 1.0 EXTERNAL RADIOLOGY T-SCORE FEMUR NECK -1.0 - 1.0 EXTERNAL RADIOLOGY T-SCORE FEMORAL NECK (LEFT) -1.0 - 1.0 EXTERNAL RADIOLOGY T-SCORE FEMORAL NECK (RIGHT) -1.0 - 1.0 EXTERNAL RADIOLOGY T-SCORE HEEL -1.0 - 1.0 HELICOPTER PILOT AL RADIOLOGY T-SCORE HEEL (LEFT) -1.0 - 1.0 EXTERNAL RADIOLOGY T-SCORE HEEL (RIGHT) -1.0 - 1.0 EXTERNAL RADIOLOGY T-SCORE HIP -1.0 - 1.0 EXTERNA L RADIOLOGY T-SCORE HIP (LEFT) -1.0 - 1.0 EXTERNAL RADIOLOGY T-SCORE HIP (RIGHT) -1.0 - 1.0 EXTERNAL RADIOLOGY T-SCORE WRIST -1.0 - 1.0 EXTER NAL RADIOLOGY T-SCORE WRIST (LEFT) -1.0 - 1.0 EXTERNAL RADIOLOGY T-SCORE WRIST (RIGHT) -1.0 - 1.0 EXTERNAL RADIOLOGY T-SCORE SPINE -1.0 - 1.0 EXTER NAL RADIOLOGY Anatomical Region Laterality Modality Other Madhuri Smith MD DIAGNOSTIC IMAGING ORDERABLES Final Result * (ABNORMAL) MAMMO DIG DIAG UNI RT W 3D JODI (10/10/2015 9:30 AM SUPERVISOR PASTE MIXING) Anatomical Region Laterality Modality Breast Right Mammography 10/10/2015 9:26 AM SUPERVISOR PASTE MIXING Narrative 10/10/2015 5:00 PM SUPERVISOR PASTE MIXING RIGHT DIGITAL DIAGNOSTIC MAMMOGRAM WITH CAD AND 3D TOMOSYNTHESIS DATE: Oct 10, 2015 09:26:27 AM INDICATION: Abnormal screening from an outside institution. TECHNIQUE: Diagnostic mammogram of the right breast was performed on a digital system. Low-dose full-field digital breast tomosynthesis was performed with 2D and 3D acquisitions. Examination is read in conjunction with computer-aided detection. COMPARISON: 09/12/2015, 05/30/2010 and 04/17/2009 from [facility]. BREAST COMPOSITION: Heterogeneously dense. FINDINGS: There are dystrophic calcifications within the medial aspect of the right breast, associated with what is likely a fibroadenoma. The largest cluster measures up to 9 mm. An additional dystrophic cluster of calcifications is identified within the upper-outer aspect of the right breast measuring 9 mm. Within the central aspect of the right breast, there are indeterminate calcifications loosely scattered. No dominant masses are identified. Overall Assessment: BI-RADS Category 4: Suspicious abnormality. RECOMMENDATIONS: Recommend stereotactic guided core biopsy of the loosely clustered microcalcifications within the central aspect of the right breast. Procedure Note Joel Bay MD - 10/10/2015 RIGHT DIGITAL DIAGNOSTIC MAMMOGRAM WITH CAD AND 3D TOMOSYNTHESIS DATE: Oct 10, 2015 09:26:27 AM INDICATION: Abnormal screening from an outside institution. TECHNIQUE: Diagnostic mammogram of the right breast was performed on a digital system. Low-dose full-field digital breast tomosynthesis was performed with 2D and 3D acquisitions. Examination is read in conjunction with computer-aided detection. COMPARISON: 09/12/2015, 05/30/2010 and 04/17/2009 from [facility]. BREAST COMPOSITION: Heterogeneously dense. FINDINGS: There are dystrophic calcifications within the medial aspect of the right breast, associated with what is likely a fibroadenoma. The largest cluster measures up to 9 mm. An additional dystrophic cluster of calcifications is identified within the upper-outer aspect of the right breast measuring 9 mm. Within the central aspect of the right breast, there are indeterminate calcifications loosely scattered. No dominant masses are identified. Overall Assessment: BI-RADS Category 4: Suspicious abnormality. RECOMMENDATIONS: Recommend stereotactic guided core biopsy of the loosely clustered microcalcifications within the central aspect of the right breast. Madhuri Smith MD MAMMO ORDERABLES Final Result from Last 3 Months or Most Recently Relevant to Health Maintenance Insurance MEDICARE PART A AND B [facility] SUPP MEDICARE PART A AND B [facility] Advance Directives For more information, please contact: [phone] * Full Code (Latest Code Status on File) Date Activated Date Inactivated Comments 01/01/2016 10:27 AM 01/02/2016 12:49 PM * Full Code Date Activated Date Inactivated Comments 01/01/2016 8:36 AM 01/01/2016 10:27 AM * Full Code Date Activated Date Inactivated Comments 07/12/2010 2:01 PM 07/16/2010 12:23 PM * Full Code Date Activated Date Inactivated Comments 07/12/2010 7:33 AM 07/12/2010 2:01 PM * Full Code Date Activated Date Inactivated Comments 07/12/2010 7:33 AM 07/12/2010 7:33 AM Care Teams Body And Fender Mechanic Apprentice Relationship Specialty Start Date End Date Farhana Hardy DO [address] [facility] [address] [place] [address] PCP - General Family Practice 06/25/23
== END 2024-11-16 10:20 | disposition home or self-care (01) ==
PROVIDERS: Internal Medicine; PCP Family Medicine; Visit Provider Nurse Practitioner
DX: E55.9 Vitamin D deficiency, unspecified (principal); E78.5 Hyperlipidemia, unspecified; M17.11 Unilateral primary osteoarthritis, right knee; M17.12 Unilateral primary osteoarthritis, left knee; M47.816 Spondylosis without myelopathy or radiculopathy, lumbar region; M19.90 Unspecified osteoarthritis, unspecified site
CPT/HCPCS: 36415; 80053; 80061; 80074; 81001; 82306; 84443; 84550; 85025; 85652; 86038; 86039; 86140; 86200; 86430; 86480; 86706

== ENCOUNTER 2024-11-24 10:23 | Outpatient (CLI) | payer MEDICARE, SELFPAY ==
--- NOTE | ~2024-11-24 | US_ITS ---
EXAMINATION: US abdomen limited DATE: 11/24/2024 11:34 INDICATION: Abnormal levels of other serum enzymes. TECHNIQUE: Multiple grayscale and Doppler ultrasound images of the abdomen were obtained. COMPARISON: Chest CT 08/17/2021 FINDINGS: The visualized portions of the head, body, and tail of the pancreas are normal. The liver i s normal without focal lesion. There is normal flow in main portal vein. The gallbladder is absent. T he common duct is normal and measures 4 mm. IMPRESSION: 1. Normal right upper quadrant ultrasound status post cholecystectomy. Reviewed, dictated and finalized at location A. CTOR OF IT OPERATIONS
--- OUTSIDE RECORDS SUMMARY | 2024-11-24 11:16 | XMS_ITS | Referral Summary ---
Author Organization [facility] Address [address] [facility] [address] [place] [address] Care Team Providers Care Assistant Plant Manager Name Role Phone Jose Luis Camacho MD Primary Care Provider [phone] Source Comments [facility],non-owned Affiliates and Associated Physician Practices is amultiple site organization consisting of ambulatory clinics and hospital sitesin [place], [place], [place] and [place]. This disclosure is being madepursuant to the Care Everywhere program and may not contain all information available regarding this patient. Last updated 18.[facility] Allergies Active Allergy Reactions Criticality Noted Date [...] Oxygen Saturation 97% 11/18/2017 10: 37 AM ELECTROLYTIC DE SCALER range between 92-97 Inhaled Oxygen Concentration - - Weight 88.9 kg (196 lb) 03/15/2018 12:4 4 PM CDT Height 156.2 cm (5' 1.5 ) 03/15/2018 12 :44 PM CDT Body Mass Index 36.43 03/15/2018 12:44 PM CDT Plan of Treatment Not on file Care Teams Assistant Plant Manager Relationship Specialty Start Date End Date Jose Luis Camacho MD [address] [place] [address] PCP - General Family Medicine 11/18/17
--- OUTSIDE RECORDS SUMMARY | 2024-11-24 11:16 | XMS_ITS | Clinical Summary ---
Author Organization [facility] Address [address] [facility] [place] [address] Care Team Providers Care Dietitian Assistant Name Role Phone Jose Luis Camacho MD Primary Care Provider [phone] Source Comments [facility],non-owned Affiliates and Associated Physician Practices is amultiple site organization consisting of ambulatory clinics and hospital sitesin [place], [place], [place] and [place]. This disclosure is being madepursuant to the Care Everywhere program and may not contain all information available regarding this patient. 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
--- OUTSIDE RECORDS SUMMARY | 2024-11-24 11:16 | XMS_ITS | Patient Health Summary ---
Author Organization [facility] Address [address] [facility] [place] [address] Care Team Providers Care Zigzag Elastic Attacher Name Role Phone Jose Luis Camacho MD Primary Care Provider [phone] Note from [facility],non-owned Affiliates and Associated Physician Practices is amultiple site organization consisting of ambulatory clinics and hospital sitesin [place], [place], [place] and [place]. This disclosure is being madepursuant to the Care Everywhere program and may not contain all information available regarding this patient. Last updated 18.[facility] Allergies * Erythromycin(GI Discomfort) * Metronidazole * [...] Oxygen Saturation 97% 11/18/2017 10: 37 AM HEAD RIGGER range between 92-97 Inhaled Oxygen Concentration - [...] pH units Blood UA 5-10 Negative Specific Sage UA POCT 1.005 1.002 - 1.030 Ketone UA Negative Negative Bilirubin UA POCT negative Negative Glucose UA negative Negative Expiration Date 06 07 2019 Lot # [id number] QC Verified Yes Yes Urine URINE / Unknown 03/15/2018 1 :05 PM CDT Guanaco Jefferson APRN-[facility] - [place] RE ORDERABLES * (ABNORMAL) CULTURE URINE (03/15/2018 [...] and trimethoprim-sulfamethoxazole are not effective clinically. (CLSI, K538-Y92, 2016) Antimicrobial Susceptibility [facility] ACCOUNT BILL Comment: [...] CDT 03/16/2018 Narrative Resulting Agency Comment [facility] [address] [facility] [id number] Guanaco Jefferson APRN-ROUTE SALES PERSON LAB - MICROBIOLOG Y ORDERABLES [facility] ACCOUNT BILL [address] [place] [address] * INFLUENZA A+B - POINT OF CARE (AMB) (11/18/2017) Influenza A Antigen Rapid Negative Negative Influenza B Antigen Rapid Negative Negative Influenza Internal Control Present NEGATIVE - POSITIVE Influenza Lot Number [id number] Influenza Expiration Date 07/21/19 Other NASOPHARYNGEAL SWAB / Unknown 11/18/2017 Daniela A Sandoval RESIDENTIAL DOOR INSTALLER-ROUTE SALES PERSON LAB - POINT OF CARE ORDERABLES Care Teams Zigzag Elastic Attacher Relationship Specialty Start Date End Date Jose Luis Camacho MD [address] [place] [address] PCP - General Family Medicine 11/18/17
--- OUTSIDE RECORDS SUMMARY | 2024-11-24 11:17 | XMS_ITS | Data Portability ---
Author Organization [place] - [facility] [employer], Main Office Address [address] [place] [address] Care Team Providers Care Pharmacy Retail Support Specialist Name Role Phone FANNY VALENTIN Primary Care Provider [phone] FANNY VALENTIN Referring Provider [phone] Assessment Encounter Date Assessment Date Assessment LastModified by Organization Details LastModified Time 09/05/2023 09/05/2023 By x-ray and exa m the patient is noted have severe primary osteoarthritis left knee with zjtv-sk-rzil changes in the medial compartment and the [...] more than half the time spent in axfa-kf-paxd care. Not available 09/27/2023 15:59:45 04/07/2024 04/07/2024 [...] patient to schedule 2023 024 [email or web address] [facility], [address], [place], [address], 4 08:56:17 physical therapist referral - [facility], [address], [place], [address], 4 15:31:54 Procedures injection/a spiration joint/bursa (PROC) - in office procedure, administere d by provider 2022 023 [email or web address] In-Office Order, Internal Use Only DO Not Attach Compendium DO Not Attach Compendium, Do Not Delete/merge, [id number] 3 10:18:55 injection/a spiration joint/bursa (PROC) - in office procedure, administere d by provider 2023 024 [email or web address] 3 In-Office Order, Internal Use Only DO Not Attach Compendium DO Not Attach Compendium, Do Not Delete/merge, [id number] 4 11:43:25 injection/a spiration joint/bursa (PROC) - in office procedure, administere d by provider 2023 024 [email or web address] 3 In-Office Order, Internal Use Only DO Not Attach Compendium DO Not Attach Compendium, Do Not Delete/merge, [id number] 4 11:43:25 injection/a spiration joint/bursa (PROC) 2023 024 [email or web address] 3 In-Office Order, Internal Use Only DO Not Attach Compendium DO Not Attach Compendium, Do Not Delete/merge, [id number] 4 10:14:54 Surgeries None recorded. Imaging XR, knee 2022 023 [email or web address] [facility] [place], [address], [place], [address], 3 15:16:18 XR, hip + pelvis, unilateral 2023 024 EARL [facility] [place], [address], [place], [address], 4 15:33:43 Medication Orders Kenalog 10 mg/mL suspension for injection [address] [id number], [address], [place], [place], [id number], 3 15:03:50 ropivacaine (PF) 5 mg/mL (0.5 %) injection solution [address] [id number], [address], [place], [place], [id number], 3 15:03:50 Kenalog 10 mg/mL suspension for injection [address] [facility]055, [address], [place], [place], [id number], 4 23:30:46 Marcaine (PF) 0.5 % (5 mg/mL) injection solution [address] [facility], [address] [place] [address], [id number], 4 23:30:46 Kenalog 10 mg/mL suspension for injection [address] [facility]39, [address] [place] [address], [id number], 4 23:30:46 Marcaine (PF) 0.5 % (5 mg/mL) injection solution [address] [facility]341, [address] [place], [id number], 4 23:30:46 Kenalog 10 mg/mL suspension for injection 2023 [email or web address] Not available 4 23:19:56 Marcaine (PF) 0.5 % (5 mg/mL) injection solution 2023 [email or web address] Not available 4 23:19:56 cyclobenzap rine 10 mg tablet 2023 [email or web address] [facility] #[id number], [address] [facility], [place], [place], [id number], 4 23:19:56 Patient TargetsNo targets recorded. Patient [...] observ ation record ed. [email or web address] [facility] [place] [address], [place], [address], 09/05/2023 13:19:20 04/07/20 24 XR, hip + pelvi s, unila teral No observ ation record ed. [email or web address] [facility] [place] [address], [place], [address], 04/07/2024 10:47:53 Result Notes None recorded. Problems Name Problem SNOMED Code Status Onset Date Resolution Date Notes Provider Name and Address Organization Details Recorded Time Pain of left knee joint 9810134075753 07 Active 2022 SIS Rivas, [place] - [facility] 3 12:41:16 Osteoarthri tis of left knee joint 0539883061477 09 Active 2022 CAIO Monaco [address], [address], [place], [address], [facility] 3 13:17:23 Osteoarthri tis of right knee joint 6821410040164 00 Active 2022 CAIO Monaco [address], [address], [place], [address], [facility] 3 13:19:31 Pain in right hip joint 8671287050205 02 Active 2023 SIS Rivas, [facility] 4 10:47:48 Trochanteri c bursitis of right hip 0121779174828 00 Active 2023 Arelis tamayo, [facility] 4 11:40:02 Pain of bilateral knee joints 9281566669302 04 Active 2023 PATY Casas null, [facility] 4 09:35:02 Bilateral osteoarthri tis of knees 4941381568176 07 Active 2023 Arelis tamayo, [facility] 4 10:13:33 Problem Notes None recorded. Procedures Surgical History Date Name Laterality Status Provider Name and Address Organization Details Recorded Time 4 Ortho - Cortisone Injection completed Brian Elias MD [address], [facility] [address], [place], [address], [facility] 05/27/2024 16:33:44 4 Ortho - Cortisone Injection completed Brian Elias MD [address], [address], [place], [address], [facility] 04/07/2024 18:17:00 Hysterectomy, Partial completed Carolina Martinez CNA [place] [facility] 09/05/2023 12:39:22 Breast Surgery completed SIS Hanson - [facility] 09/05/2023 12:39:57 Cataract Surgery completed PATRICIA RivasA [place] [facility] 09/05/2023 12:40:24 Imaging Results Imaging Date Name Status LastModified by Organiz ation Details LastModified Time 09/05/2023 XR, knee completed [email or web address] [facility] [place] [address], [place], [address], 09/05/2023 13:19:20 04/07/2024 XR, hip + pelvis, unilateral completed [email or web address] [facility] [place] [address], [place], [address], 04/07/2024 10:47:53 Procedure Notes None recorded. Medical Equipment None Reported. Allergies Allergen ID Allergen Name Allergen Category Reaction Reaction Severity Criticality Documentation Date Start Date Code Code System Note Provider Name and Address Organization Details Recorded Time 38249 tetracycl ine medicatio n rash Not available Not available 12/25/2022 90855 RxNorm blist ering Carolina Martinez, [employer] null, [place] - [facility] Inbilin 12:30:25 13564 Product containin g penicilli n and antibioti c (product) medicatio n rash swelling Not available Not available Not available 12/25/2022 25277 05 SNOMED Not Available [facility] 21:50:55 61972 red dye food,medi cation rash Not available Not available 09/05/2023 UNK contr astbl ister ing Carolina Martinez, [employer] null, [place] [facility] 3 12:31:13 Medications Name Sig Start Date [...] suspension for injection in office 2023 active [facility]: 0003- 0494- 20 Not Available Not Available [...] administe red by the provider 09/05 completed [facility]: 0409- 4276- 17 Not Available Not Available [...] Not Available Not Available Not [facility] USE WITH INHALERS DIRECTED [...] Updated DateTime 09/05/2023 154.94 cm 38.8 kg/m2 54694.59 g Carolina Martinez CNA [facility] 09/05/2023 12:47:55 Date Recorded Body height Body mass index (BMI) Body weight Provider Name and Address Organization Details Last Updated DateTime 09/24/2023 153.42 cm 40.6 kg/m2 71199.55 g Armida [facility] 09/24/2023 10:00:37 Date Recorded Body height Body mass index (BMI) Body weight Provider Name and Address Organization Details Last Updated DateTime 04/07/2024 152.4 cm 41 kg/m2 52405.4 g Carolina Martinez CNA [facility] 04/07/2024 10:47:03 Date Recorded Body height Body mass index (BMI) Body weight Provider Name and Address Organization Details Last Updated DateTime 05/26/2024 152.4 cm 42 kg/m2 94024.36 g PATY Casas [facility] 05/26/2024 09:33:46 Social History Question Answer Notes LastModified by Organizat ion Details LastModified Time Tobacco Smoking Status Never Smoker SIS Rivas [employer] 09/05/2023 12:38:54 What Is Your Level Of Alcohol Consumption? None [email or web address] Information not available 09/05/2023 What Was The Date Of Your Most Recent Tobacco Screening? 05/26/2024 [email or web address] Information not available 05/26/2024 Sex: Unknown Functional [...] SNOMED-CT Code Diagnosis ICD10 Code Diagnosis Note [id number] CAIO Monaco [facility] [place] [address] [place] [address] 09/05/2023 12:07:11 09/05/2023 13:13:45 Pain of left knee joint 5747296495 13752 M25.562 Osteoarthr itis of left knee joint 0600518515 86801 M17.12 Osteoarthr itis of right knee joint 4916305967 45960 M17.11 [id number] [address] MD [facility] [place] [address] [place] [address] 09/24/2023 08:59:01 09/29/2023 10:58:30 Osteoarthritis of left knee joint 7869535847 82808 M17.12 [id number] [facility] [place] [address] [place] [address] 04/07/2024 10:40:46 04/07/2024 11:50:35 Pain in right hip joint 6517874848 72254 M25.551 Trochanter ic bursitis of right hip 2429317043 58206 M70.61 Osteoarthr itis of left knee joint 5439088178 82951 M17.12 [id number] Brian Elias MD [facility] [place] [address] [place] [address] 05/26/2024 09:29:49 05/26/2024 10:11:40 Pain of bilateral knee joints 0139108306 94137 M25.569 Bilateral osteoarthritis of knees 9920340045 80193 M17.0 Health Concerns Section Related Observation LastModified by Organization Detai ls LastModified Time None Recorded Concern Status LastModified by Organization Details LastModified Time None Recorded Advance Directives Directive None Recorded Payers Encounter Date Sequence Insurance Name Policy Number Policy Herrera Covered Member ID Herrera Member ID Guarantor Name 09/05/2023 1 [place] Muna Gomez Cross [id number] 1 Muna Cross 09/05/2023 2 [place] [id number] Muna Gomez Cross [id number] 17 Muna Cross 09/24/2023 1 [place] M[place] Cross [id number] 1 Muna Cross 09/24/2023 2 [place] [id number] Muna Gomez Cross [id number] 17 Muna Cross 04/07/2024 1 [place] Muna Gomez Cross [id number] 1 Muna Cross 04/07/2024 2 [place] [id number] Muna Gomez Cross [id number] 17 Muna Cross 05/26/2024 1 [place] Muna Gomez Cross [id number] 1 Muna Cross 05/26/2024 2 [place] [id number] Muna Gomez Cross [id number] Muna Enriquez Notes Date Note Type [...] today with the patient. CAIO Monaco [address] [facility], [facility] [address], [place], [address], [place] [facility] [employer] 09/05/2023 13:24:28 3 text/html Patient is a [...] over a period of 9 months through [facility]. She is 5 ft 3 eights [...] axis varus alignment. Anshu Harrison MD [address] [facility] [address], [place], [address], [place] [facility] 09/27/2023 16:00:29 OBGyn Episode No OBEpisode recorded.
--- OUTSIDE RECORDS SUMMARY | 2024-11-24 11:17 | XMS_ITS | Clinical Summary ---
Author Organization [facility] [place] Address [address] [facility] [place] [address] Phone Care Team Providers Care Rollway Man Name Role Phone Farhana Hardy DO Primary Care Provider [phone]- [phone] Allergies Active Allergy Reactions Criticality Noted Date [...] Referring Provider: Jose Luis Camacho MD [address] [place] [address] Other: Other: Other:Pt denies any family hx of ovarian ca Problem Noted Date Diagnosed Date Obesity (BMI 35.0-39.9 without comorbidity) 12/26 History of right mastectomy 01/24/2016 Overview (01/24/2016): prophylactic mastectomy Genetic testing 10/27/2013 Overview (11/25/2013): moraima neg Breast Cancer left T2 N0, 200906/12/2010 Overview (01/01/2016): Core biopsy left breast 06-06-2010, invasive ductal cancer grade 3, ER/[place] negative, HER-2/liang negative, proliferative rate 77%. Left [...] on file Legal Sex Female 5:55 AM [facility] Gender Identity Not on file Sexual Orientation [...] cm (5' 1 ) 12/18/2021 9:55 AM [facility] Body Mass Index 37.41 12/18/2021 9:55 AM [facility] Plan of Treatment Upcoming Encounters Date Type Department Care Team (Late st Contact Info) Description 03/17/2025 11:00 AM CDT Office Visit [facility] Oncology and Hematology [facility] [address] [facility] [address] [place] [address] Oziel Matt MD [address] [facility] [facility] [address] [place] [address] Health Maintenance Due Date Last [...] OR WO CAD Routine 10/10/2015 9:30 AM [facility]F Malignant neoplasm of left female breast, unspecified [...] EXTERNAL RADIOLOGY T-SCORE HEEL -1.0 - 1.0 COLLAR FELLER AL RADIOLOGY T-SCORE HEEL (LEFT) -1.0 - [...] RT W 3D JODI (10/10/2015 9:30 AM [facility]) Anatomical Region Laterality Modality Breast Right Mammography 10/10/2015 9:26 AM [facility] Narrative 10/10/2015 5:00 PM [facility] RIGHT DIGITAL DIAGNOSTIC MAMMOGRAM WITH CAD AND 3D TOMOSYNTHESIS DATE: Oct 10, 2015 09:26:27 AM INDICATION: Abnormal screening from an outside institution. TECHNIQUE: Diagnostic mammogram of the right breast was performed on a digital system. Low-dose full-field digital breast tomosynthesis was performed with 2D and 3D acquisitions. Examination is read in conjunction with computer-aided detection. COMPARISON: 09/12/2015, 05/30/2010 and 04/17/2009 from [facility]. BREAST COMPOSITION: Heterogeneously dense. FINDINGS: There [...] detection. COMPARISON: 09/12/2015, 05/30/2010 and 04/17/2009 from [facility]. BREAST COMPOSITION: Heterogeneously dense. FINDINGS: There [...] Insurance MEDICARE PART A AND B [facility] SUPP MEDICARE PART A AND B [facility] Advance Directives For more information, please contact: [phone] * Full Code (Latest Code Status on [...] 7:33 AM 07/12/2010 7:33 AM Care Teams Rollway Man Relationship Specialty Start Date End Date Farhana Hardy DO [address] [facility] [address] [place] [address] PCP - General Family Practice 06/25/23
--- OUTSIDE RECORDS SUMMARY | 2024-11-24 11:17 | XMS_ITS ---
Author Organization [facility] [place] Address [address] [place] [address] Phone Care Team Providers Care Training Development Specialist Name Role Phone Farhana Hardy DO Primary Care Provider +1- [phone] Active Problems Patient Care Coordination No te Formatting of this note migh t be different from the original. Primary Care: Jose Luis Camacho MD Referring Provider: Jose Luis Camacho MD [address] [place] [address] Other: Other: Other:Pt denies any family hx of ovarian ca Problem Noted Date Diagnosed Date Obesity (BMI 35.0-39.9 without comorbidity) 12/26 History of right mastectomy 01/24/2016 Overview (01/24/2016): prophylactic mastectomy Genetic testing 10/27/2013 Overview (11/25/2013): moraima neg Breast Cancer left T2 N0, 200906/12/2010 Overview (01/01/2016): Core biopsy left breast 06-06-2010, invasive ductal cancer grade 3, ER/[place] negative, HER-2/liang negative, proliferative rate 77%. Left [...]
== END 2024-11-24 10:24 | disposition home or self-care (01) ==
PROVIDERS: PCP Family Medicine; Visit Provider Nurse Practitioner
DX: R74.8 Abnormal levels of other serum enzymes (principal)
CPT/HCPCS: 76705

== ENCOUNTER 2025-03-09 11:03 | Outpatient (CLI) | payer MEDICARE, SELFPAY ==
--- OUTSIDE RECORDS SUMMARY | 2025-03-09 11:22 | XMS_ITS ---
Author Organization [facility] [place] Address [address] [place] [address] Phone Care Team Providers Care Delivery Crew Member Name Role Phone Farhana Hardy DO Primary Care Provider +1- [phone] Active Problems Patient Care Coordination No te Formatting of this note migh t be different from the original. Primary Care: Jose Luis Camacho MD Referring Provider: Jose Luis Camacho MD [address] [place] [address] Other: Other: Other:Pt denies any family hx of ovarian ca Problem Noted Date Diagnosed Date Obesity (BMI 35.0-39.9 without comorbidity) 12/26 History of right mastectomy 01/24/2016 Overview (01/24/2016): prophylactic mastectomy Genetic testing 10/27/2013 Overview (11/25/2013): moraima neg Breast Cancer left T2 N0, 200906/12/2010 Overview (01/01/2016): Core biopsy left breast 06-06-2010, invasive ductal cancer grade 3, ER/[place] negative, HER-2/liang negative, proliferative rate 77%. Left [...]
--- OUTSIDE RECORDS SUMMARY | 2025-03-09 11:22 | XMS_ITS | Data Portability ---
Author Organization [place] - [facility], Main Office Address [address] [place] [address] Care Team Providers Care Video Tape Duplicator Name Role Phone FANNY VALENTIN Primary Care Provider FANNY VALENTIN Referring Provider [phone] Assessment Encounter Date Assessment Date Assessment LastModified by Organization Details LastModified Time 09/05/2023 09/05/2023 By x-ray and exa m the patient is noted have severe primary osteoarthritis left knee with [id number]-[id number] changes in the medial compartment and the [...] more than half the time spent in nirb-jd-vyju care. Not available 09/27/2023 15:59:45 04/07/2024 04/07/2024 [...] None recorded. Referral physical therapist referral - continue PT [address] [facility], [address], [place], [address], 4 15:31:54 physical therapist referral - eval and treatcall patient to schedule 2023 024 [email or web address] 3 [facility], [address], [place], [address], 4 08:56:17 Procedures injection/a spiration joint/bursa (PROC) 2023 024 [email or web address] 3 In-Office Order, Internal Use Only DO Not Attach Compendium DO Not Attach Compendium, Do Not Delete/merge, [id number] 4 10:14:54 injection/a spiration joint/bursa (PROC) - in office procedure, administere d by provider 2023 024 [email or web address] 3 In-Office Order, Internal Use Only DO Not Attach Compendium DO Not Attach Compendium, Do Not Delete/merge, [id number] 4 11:43:25 injection/a spiration joint/bursa (PROC) - in office procedure, administere d by provider 2023 024 [email or web address] 3 In-Office Order, Internal Use Only DO Not Attach Compendium DO Not Attach Compendium, Do Not Delete/merge, [id number] 4 11:43:25 injection/a spiration joint/bursa (PROC) - in office procedure, administere d by provider 2022 023 [email or web address] In-Office Order, Internal Use Only DO Not Attach Compendium DO Not Attach Compendium, Do Not Delete/merge, [id number] 3 10:18:55 Surgeries None recorded. Imaging XR, hip + pelvis, unilateral 2023 024 [facility] [place], [address], [place], [address], 4 15:33:43 XR, knee 2022 023 [email or web address] [facility] [place], [address], [place], [address], 3 15:16:18 Medication Orders Kenalog 10 mg/mL suspension for injection 2023 024 [email or web address] Not available 4 23:19:56 Marcaine (PF) 0.5 % (5 mg/mL) injection solution 2023 024 [email or web address] Not available 4 23:19:56 cyclobenzap rine 10 mg tablet [address] [facility], [address] [place], [place], [id number], 4 23:19:56 Kenalog 10 mg/mL suspension for injection [address] [facility]2823, [address] [place], [place], [id number], 4 23:30:46 Marcaine (PF) 0.5 % (5 mg/mL) injection solution [address] [facility]28405, [address] [place], [place], [id number], 4 23:30:46 Kenalog 10 mg/mL suspension for injection [address] [facility]57359, [address] [place], [place], [id number], 4 23:30:46 Marcaine (PF) 0.5 % (5 mg/mL) injection solution [address] [facility]36446, [address] [place], [place], [id number], 4 23:30:46 Kenalog 10 mg/mL suspension for injection [address] [facility]803, [address], [place], [place], [id number], 3 15:03:50 ropivacaine (PF) 5 mg/mL (0.5 %) injection solution [address] [facility]19, [address], [place], [place], [id number], 3 15:03:50 Patient TargetsNo targets recorded. Patient InstructionsNo instructions [...] observ ation record ed. [email or web address] [facility] [place] [address], [place], [address], 09/05/2023 13:19:20 04/07/20 24 XR, hip + pelvi s, unila teral No observ ation record ed. [email or web address] [facility] [place] [address], [place], [address], 04/07/2024 10:47:53 Result Notes None recorded. Problems Name Problem SNOMED Code Status Onset Date Resolution Date Notes Provider Name and Address Organization Details Recorded Time Pain of left knee joint 8340073619196 07 Active 2022 SIS Rivas, [place] [facility] [place] [facility] 3 12:41:16 Osteoarthri tis of left knee joint 1612219613525 09 Active 2022 CAIO Monaco [address], [place], [address], [facility] 3 13:17:23 Osteoarthri tis of right knee joint 6097758117491 00 Active 2022 CAIO Monaco [address], [address], [place], [address], [facility] 3 13:19:31 Pain of right hip joint 9929691411862 02 Active 2023 SIS Rivas, [facility] 4 10:47:48 Trochanteri c bursitis of right hip 4007206647958 00 Active 2023 Arelis tamayo, [facility] 4 11:40:02 Pain of bilateral knee joints 6110500970974 04 Active 2023 PATY Casas null, [facility] 4 09:35:02 Bilateral osteoarthri tis of knees 4498246087341 07 Active 2023 Arelis tamayo, [facility] 4 10:13:33 Problem Notes None recorded. Procedures Surgical History Date Name Laterality Status Provider Name and Address Organization Details Recorded Time 4 Ortho - Cortisone Injection completed Brian Elias MD [address], [facility] [address], [place], [address], [facility] 05/27/2024 16:33:44 4 Ortho - Cortisone Injection completed Brian Elias MD [address], [facility] [address], [place], [address], [facility] 04/07/2024 18:17:00 Hysterectomy, Partial completed Carolina Martinez CNA [place] [facility] [place] [facility] 09/05/2023 12:39:22 Breast Surgery completed SIS Hanson - [facility] [place] [employer] [facility] 09/05/2023 12:39:57 Cataract Surgery completed Carolina Martinez CNA [place] [facility] [place] [employer] [facility] 09/05/2023 12:40:24 Imaging Results Imaging Date Name Status LastModified by Organiz ation Details LastModified Time 09/05/2023 XR, knee completed [email or web address] [facility] [place] [address], [place], [address], 09/05/2023 13:19:20 04/07/2024 XR, hip + pelvis, unilateral completed [email or web address] [facility] [place] [address], [place], [address], 04/07/2024 10:47:53 Procedure Notes None recorded. Medical Equipment None Reported. Allergies Allergen ID Allergen Name Allergen Category Reaction Reaction Severity Criticality Documentation Date Start Date Code Code System Note Provider Name and Address Organization Details Recorded Time 02722 tetracycl ine medicatio n rash Not available Not available 12/25/2022 04618 RxNorm blist ering Carolina Martinez CREDIT REVIEW ANALYST null, [place] [facility] [place] [employer] [facility] 12:30:25 93143 Product containin g penicilli n (product) medicatio n rash swelling Not available Not available Not available 12/25/2022 52263 8001 SNOMED Not Available [employer] 21:50:55 38795 red dye food,medi cation rash Not available Not available 09/05/2023 UNK contr astbl ister ing Carolina Martinez, CREDIT REVIEW ANALYST null, [place] [facility] [place] [employer] [facility] 12:31:13 Medications Name Sig Start Date Stop [...] suspension for injection in office [address] [facility]: 0003- 0494- 20 Not Available Not [...] administe red by the provider 09/[address] [facility]: 0409- 4276- 17 Not Available Not [...] 2022 active Not Available Not Available Not Audieai padma [facility] with Large Mask USE WITH INHALERS DIRECTED active Not Available Not Available No t Available Fluad 2019- 65yr up(PF)45 mcg(15 mcgx3)/0.5 mL intramuscul ar [...] Updated DateTime 09/05/2023 154.94 cm 38.8 kg/m2 20675.59 g Carolina Martinez CNA [facility] 09/05/2023 12:47:55 Date Recorded Body height Body mass index (BMI) Body weight Provider Name and Address Organization Details Last Updated DateTime 09/24/2023 153.42 cm 40.6 kg/m2 14037.55 g Armida Andrew [facility] 09/24/2023 10:00:37 Date Recorded Body height Body mass index (BMI) Body weight Provider Name and Address Organization Details Last Updated DateTime 04/07/2024 152.4 cm 41 kg/m2 57634.4 g Carolina Martinez CNA [facility] 04/07/2024 10:47:03 Date Recorded Body height Body mass index (BMI) Body weight Pain severity - 0-10 verbal numeric rating [Score] - Reported Provider Name and Address Organization Details Last Updated DateTime 05/26/2024 152.4 cm 42 kg/m2 64281.36 g PATY Stock [place] [employer] [facility] ret[facility]r 05/26/2024 09:33:54 Social History Question Answer Notes LastModified by Organizat ion Details LastModified Time Tobacco Smoking Status Never Smoker SIS Rivas [facility] 09/05/2023 12:38:54 What Was The Date Of Your Most Recent Tobacco Screening? 05/26/2024 [email or web address] Information not available 05/26/2024 Sex: Unknown Functional Status Question Answer Note LastModified by Organization D etails LastModified Time What is your level of alcohol consumption? None [email or web address] Information not available 09/05/2023 Mental Status None recorded. Family History Relationship [...] SNOMED-CT Code Diagnosis ICD10 Code Diagnosis Note [id number] Anshu Harrison MD [facility] [place] [address] [place] [address] 09/05/2023 12:07:11 09/05/2023 13:13:45 Pain of left knee joint 8535401781 03622 M25.562 Osteoarthr itis of left knee joint 9998709004 67429 M17.12 Osteoarthr itis of right knee joint 1244652047 21514 M17.11 [id number] Anshu Harrison MD [facility] [place] [address] [place] [address] 09/24/2023 08:59:01 09/29/2023 10:58:30 Osteoarthritis of left knee joint 0244339373 88018 M17.12 [id number] Brian Elias MD [facility] [place] [address] [place] [address] 04/07/2024 10:40:46 04/07/2024 11:50:35 Pain of right hip joint 4095931835 78554 M25.551 Trochanter ic bursitis of right hip 4709216692 08515 M70.61 Osteoarthr itis of left knee joint 1792455859 11504 M17.12 [id number] Brian Elias MD [facility] [place] [address] [facility] [facility] [address] [place] [address] 05/26/2024 09:29:49 05/26/2024 10:11:40 Pain of bilateral knee joints 1749639877 70148 M25.569 Bilateral osteoarthritis of knees 8048204138 63535 M17.0 Health Concerns Section Related Observation LastModified by Organization Detai ls LastModified Time None Recorded Concern Status LastModified by Organization Details LastModified Time None Recorded Advance Directives Directive None Recorded Payers Encounter Date Sequence Insurance Name Policy Number Policy Herrera Covered Member ID Herrera Member ID Guarantor Name 09/05/2023 1 [place] Muna S Cross [id number] 1 Muna Cross 09/05/2023 2 [place] [id number] Muna S Cross [id number] Muna Cross 09/24/2023 1 [place] [id number] 1 Muna Cross 09/24/2023 2 [place] [id number] Muna S Cross [id number] Muna Cross 04/07/2024 1 [place] [id number] 1 Muna Cross 04/07/2024 2 [place] [id number] Muna S Cross [id number] Muna Cross 05/26/2024 1 [place] [id number] 1 Muna Cross 05/26/2024 2 [place] [id number] Muna S Cross [id number] Muna Cross Notes Date Note Type Note Provider Name [...] detail today with the patient. CAIO Monaco [address] [place] [address], [facility] [address], [place], [address], [place] [facility] [employer] 09/05/2023 13:24:28 3 text/html Patient is a [...] over a period of 9 months through [facility]. She is 5 ft 3 eights inches in height and today she weighs 210.6 lb for a BMI of 40.6. She had x-rays of her left knee on 09/05/2023. She has advanced medial compartment osteoarthritis in the left knee with bone where on both medial tibial plateau and medial femoral condyle and sclerotic changes. 7 anatomic axis varus alignment. Anshu Harrison MD [address] [place] [address], [facility] [address], [place], [address], [place] [facility] 09/27/2023 16:00:29 OBGyn Episode No OBEpisode recorded.
--- OUTSIDE RECORDS SUMMARY | 2025-03-09 11:22 | XMS_ITS | Clinical Summary ---
Author Organization [facility] Address [address] [place] [address] Phone Care Team Providers Care Purchasing Administrator Name Role Phone Farhana Hardy DO Primary Care Provider [phone] Allergies Active Allergy Reactions Criticality Noted Date [...] (RIGO) 81 mg Oral TabIndications: Status post mastectomy,[place] [address] cancer (CMS/HCC) Take by mouth. Activ e multivitamin (DAILY-TRUDY) Oral tabletIndicatio ns:Status post mastectomy,[place] [address] cancer (CMS/HCC) Take 1 Tab by [...] Referring Provider: Jose Luis Camacho MD [address] [place] [address] Other: Other: Other:Pt denies any family hx of ovarian ca Problem Noted Date Diagnosed Date Obesity (BMI 35.0-39.9 without comorbidity) 12/26 History of right mastectomy 01/24/2016 Overview (01/24/2016): prophylactic mastectomy Genetic testing 10/27/2013 Overview (11/25/2013): moraima neg Breast Cancer left T2 N0, 200906/12/2010 Overview (01/01/2016): Core biopsy left breast 06-06-2010, invasive ductal cancer grade 3, ER/MA negative, HER-2/liang negative, proliferative rate 77%. Left [...] (hypertension) Asthma Osteoarthrosis GERD (gastroesophageal reflux disease) Encounters Date Type Department Care Team Description 03/09/[address] [facility] On[facility] and H[facility]ology [facility] [address] [place] [address] Oziel Matt MD Malignant neoplasm of central portion of left female breast, unspecified estrogen receptor status (CMS/HCC) (Primary Dx) from Last 3 Months Family History Medical History Relation Name Comments [...] on file Legal Sex Female 5:55 AM VISCOSITY INSPECTOR Gender Identity Not on file Sexual Orientation Not on file Occupation Industry Job Start Date Job End Date Not on file Not on file Not on file Not on file Last Filed Vital Signs Vital Sign Reading Time Taken Comments Blood Pressure 194/97 06/25/2023 11:12 AM CDT Pulse 71 06/25/2023 10:52 AM CDT Temperature 36.7 C (98.1 F) 06/25/2023 10:52 AM CDT Respiratory Rate 10 06/25/2023 10:52 AM CDT Oxygen Saturation 100% 06/25/2023 10:52 AM CDT Inhaled Oxygen Concentration - - Weight 89.8 kg (198 lb) 06/25/2023 10:52 AM CDT Height 154.9 cm (5' 1 ) 12/18/2021 9:55 AM VISCOSITY INSPECTOR Body Mass Index 37.41 12/18/2021 9:55 AM VISCOSITY INSPECTOR Plan of Treatment Upcoming Encounters Date Type Department Care Team (Late st Contact Info) Description 03/17/2025 11:00 AM CDT Office Visit [facility] On[facility]ology [facility] [address] [facility] [address] [place] [address] Oziel Matt MD [address] [facility] [address] [place] [address] Health Maintenance Due Date Last Done Comments DTAP/TDAP/TD VACCINES (1 - Tdap) 1972 PNEUMOCOCCAL VACCINE 50+ YEA RS (1 of 2 - PCV) [...] 10/10/20 15, 09/12/2015, 09/12/2015, Additional history exists OSTEOPOROSIS SCREENING 10/14/2021 6, 09/06/2014, 06/01/2012 INFLUENZA VACCINE (#1) 2024 Procedures Procedure Name Priority Date/Time Associated Diagnosis Comments XR DEXA BONE DENSITY AXIAL 1 OR MORE SITES Routine 10/14/2016 Post-menopausal MAMMO DIAG UNI RIGHT 3D JODI W OR WO CAD Routine 10/10/2015 9:30 AM VISCOSITY INSPECTOR Malignant neoplasm of left female breast, unspecified [...] EXTERNAL RADIOLOGY T-SCORE HEEL -1.0 - 1.0 INFORMATION SERVICES TECH AL RADIOLOGY T-SCORE HEEL (LEFT) -1.0 - [...] RT W 3D JODI (10/10/2015 9:30 AM VISCOSITY INSPECTOR) Anatomical Region Laterality Modality Breast Right Mammography 10/10/2015 9:26 AM VISCOSITY INSPECTOR Narrative 10/10/2015 5:00 PM VISCOSITY INSPECTOR RIGHT DIGITAL DIAGNOSTIC MAMMOGRAM WITH CAD AND 3D TOMOSYNTHESIS DATE: Oct 10, 2015 09:26:27 AM INDICATION: Abnormal screening from an outside institution. TECHNIQUE: Diagnostic mammogram of the right breast was performed on a digital system. Low-dose full-field digital breast tomosynthesis was performed with 2D and 3D acquisitions. Examination is read in conjunction with computer-aided detection. COMPARISON: 09/12/2015, 05/30/2010 and 04/17/2009 from [facility]. BREAST COMPOSITION: Heterogeneously dense. FINDINGS: There [...] detection. COMPARISON: 09/12/2015, 05/30/2010 and 04/17/2009 from [facility]. BREAST COMPOSITION: Heterogeneously dense. FINDINGS: There [...] Maintenance Insurance MEDICARE PART A AND B [facility] SUPP MEDICARE PART A AND B [facility] SUPP Advance Directives For more information, please contact: [phone] * Full Code (Latest Code Status on [...] 7:33 AM 07/12/2010 7:33 AM Care Teams Purchasing Administrator Relationship Specialty Start Date End Date Farhana Hardy DO [address] [facility] [address] [place] [address] PCP - General Family Practice 06/25/23
--- OUTSIDE RECORDS SUMMARY | 2025-03-09 11:22 | XMS_ITS | Clinical Summary ---
Author Organization [facility] [employer] Address [address] [facility] [place] [address] Care Team Providers Care River Rat Name Role Phone Jose Luis Camacho MD Primary Care Provider Source Comments [facility] [employer],non-owned Affiliates and Associated Physician Practices is amultiple site organization consisting of ambulatory clinics and hospital sitesin [place], [place], [place] and [place]. This disclosure is being madepursuant to the Care Everywhere program and may not contain all information available regarding this patient. Last updated 18.[employer] Allergies Active Allergy Reactions Criticality Noted Date Comments Erythromycin GI Discomfort 11/18/2017 Metronidazole 11/18/2017 Penicillins 11/18/2017 Tetracycline 11/18/2017 Medications * Be aware that medications may not be up to date on this document. Alwaysverify current medications with the patient. Verapamil HCl CR 360 MG Active candesartan-hyd roCHLOROthiazid e (ATACAND HCT) 32-12.5 MG tablet Take 1 tablet by mouth once daily Active Cholecalciferol (D3-1000) 1000 UNITS Active ASPIRIN 81 PO Active montelukast (SINGULAIR) 10 MG tablet Take 10 mg by mouth at bedtime Active ALBUTEROL SULFATE IN Active Family History Medical History Relation Name Comments Cancer - Lung Father Cancer - Ovarian Maternal Grandmother Cancer - Breast Mother Relation Name Status Comments Father Maternal Grandmother Mother Social History Tobacco Use Types Packs/Day Years Used Date Smoking Tobacco: Never Smokeless Tobacco: Never Comments No Sex and Gender Information Value Date Recorded Sex Assigned at Not on file Legal Sex 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:58 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 Gender Identity Not on file Sexual Orientation Not on file Last Filed Vital Signs Vital Sign Reading Time Taken Comments Blood Pressure 142/90 03/15/2018 1:00 PM CDT Pulse 78 03/15/2018 12:44 PM CDT Temperature 37.2 C (98.9 F) 03/15/2018 12:44 PM CDT Respiratory Rate 16 03/15/2018 12:4 4 PM CDT Oxygen Saturation 97% 11/18/2017 10: 37 AM PROGRAMMING INSTRUCTOR range between 92-97 Inhaled Oxygen Concentration [...] 2003 SCREENING FOR DIABETES 11/18/2017 COVID-19 VACCINE ( - 2023-2 5 season) 2024 DEPRESSION SCREENING 10/27/2024 INFLUENZA VACCINE (Season Ended) 2025 Respiratory Syncytial Virus (RSV) Vaccine Pt: or [...] to complete this topic MENINGOCOCCAL (Group B) VACC INE SHARED DECISION-MAKING Aged Out No longer eligibl e based on patient's age to complete this topic MENINGOCOCCAL GROUPS A/C/Y/W VACCINE Aged Out No longer eligible b ased on patient's age to complete this topic Insurance [facility] Care Teams River Rat Relationship Specialty Start Date End Date Jose Luis Camacho MD [address] [place] [address] PCP - General Family Medicine 11/18/17
[2025-03-09 11:23] LABS: Basophils Absolute Auto 0.1 K/mm3 (0.0-0.1); Basophils Percent Auto 0.7 % (0.2-1.2); Eosinophils Absolute Auto 0.1 K/mm3 (0-0.3); Eosinophils Percent Auto 1.8 % (0-4.4); Hematocrit 39.6 % (37.0-47.0); Hemoglobin 12.7 g/dL (12.0-15.0); Immature Granulocyte Absolute 0.02 K/mm3 (0.00-0.031); Immature Granulocyte Percent A 0.3 % (0-0.5); Lymphocytes Absolute Auto 2.06 K/mm3 (0.9-3.2); Lymphocytes Percent Auto 30.8 % (18.3-44.2); Mean Corpuscular HGB Conc 32.1 g/dl (32-36); Mean Corpuscular Hemoglobin 30.5 pg (26-34); Mean Corpuscular Volume 95.2 fl (80-100); Mean Platelet Volume 9.3 fl (7.4-10.4); Monocytes Absolute Auto 0.9 K/mm3 (0.1-0.6); Monocytes Percent Auto 12.7 % (2.6-8.5); Neutrophils Absolute Auto 3.6 K/mm3 (1.3-6.7); Neutrophils Percent Auto 53.7 % (45.5-73.1); Platelet Count Result 251 k/mm3 (150-375); Red Blood Count 4.16 M/mm3 (4.2-5.4); Red Cell Distribution Width 13.6 % (11.5-14.5); White Blood Count 6.7 K/mm3 (4.5-10.0)
[2025-03-09 13:44] LABS: Alanine Aminotransferase 19 U/L (6-35); Albumin Level 4.3 g/dL (3.5-5.1); Alkaline Phosphatase 103 U/L (38-126); Anion Gap 7 mmol/L (4-12); Aspartate Amino Transferase 34 U/L (14-36); Bilirubin,Total 0.4 mg/dL (0.2-1.3); Blood Urea Nitrogen 12 mg/dL (7-17); Calcium 9.5 mg/dL (8.4-10.2); Carbon Dioxide 29 mmol/L (22-30); Chloride 102 mmol/L (98-107); Estimated Glomerular Filt Rate > 60; Glucose 93 mg/dL (65-110); Potassium 4.5 mmol/L (3.4-5.0); Sodium 138 mmol/L (137-145)
[2025-03-11 08:14] LABS: CA 15-3 21 U/mL (<32)
== END 2025-03-09 11:04 | disposition home or self-care (01) ==
LOC: ANHLAB 11:05
PROVIDERS: PCP Family Medicine; Visit Provider Internal Medicine Hematology & Oncology
DX: C50.112 Malignant neoplasm of central portion of left female breast (principal)
CPT/HCPCS: 36415; 80053; 85025; 86300

== ENCOUNTER 2025-06-24 08:37 | Outpatient (CLI) | payer MEDICARE, SELFPAY ==
--- OUTSIDE RECORDS SUMMARY | 2025-06-24 08:44 | XMS_ITS | Clinical Summary ---
Author Organization [facility] [employer] Address [address] [facility] [place] [address] Care Team Providers Care Robotic Machine Operator Name Role Phone Jose Luis Camacho MD Primary Care Provider [phone] Source Comments [facility] [employer],non-owned Affiliates and Associated Physician Practices is amultiple site organization consisting of ambulatory clinics and hospital sitesin [place], [place], [place] and [place]. This disclosure is being madepursuant to the Care Everywhere program and may not contain all information available regarding this patient. Last updated 18[employer] Allergies Active Allergy Reactions Criticality Noted Date [...] on file Legal Sex Female 5:58 PM CONCRETE FLOATER Gender Identity Not on file Sexual Orientation Not on file Last Filed Vital Signs Vital Sign Reading Time Taken Comments Blood Pressure 142/90 03/15/2018 1:00 PM CDT Pulse 78 03/15/2018 12:44 PM CDT Temperature 37.2 C (98.9 F) 03/15/2018 12:44 PM CDT Respiratory Rate 16 03/15/2018 12:4 4 PM CDT Oxygen Saturation 97% 11/18/2017 10: 37 AM CONCRETE FLOATER range between 92-97 Inhaled Oxygen Concentration - - Weight 88.9 kg (196 lb) 03/15/2018 12:4 4 PM CDT Height 156.2 cm (5' 1.5) 03/15/2018 12 :44 PM CDT Body Mass [...] season) 2024 DEPRESSION SCREENING 10/27/2024 INFLUENZA VACCINE (#1) 2025 Respiratory Syncytial Virus (RSV) Vaccine Pt: [...] patient's age to complete this topic Insurance [facility] Care Teams Robotic Machine Operator Relationship Specialty Start Date End Date Jose Luis Camacho MD [address] [place] [address] PCP - General Family Medicine 11/18/17
--- OUTSIDE RECORDS SUMMARY | 2025-06-24 08:44 | XMS_ITS ---
Author Organization [facility] Address [address] [place] [address] Phone Care Team Providers Care Steward/Stewardess Dining Room Name Role Phone Farhana Hardy DO Primary Care Provider [phone] Active Problems Patient Care Coordination No te Formatting of this note migh t be different from the original. Primary Care: Jose Luis Camacho MD Referring Provider: Jose Luis Camacho MD [address] [place] [address] Other: Other: Other:Pt denies any family hx of ovarian ca Problem Noted Date Diagnosed Date Obesity (BMI 35.0-39.9 without comorbidity) 12/26 History of right mastectomy 01/24/2016 Overview (01/24/2016): prophylactic mastectomy Genetic testing 10/27/2013 Overview (11/25/2013): moraima neg Breast Cancer left T2 N0, 200906/12/2010 Overview (01/01/2016): Core biopsy left breast 06-06-2010, invasive ductal cancer grade 3, ER/OR negative, HER-2/liang negative, proliferative rate 77%. Left [...]
--- OUTSIDE RECORDS SUMMARY | 2025-06-24 08:44 | XMS_ITS | Clinical Summary ---
Author Organization [facility] Address [address] [place] [address] Phone Care Team Providers Care Site Physician Name Role Phone Farhana Hardy Primary Care Provider [phone] Allergies Active Allergy Reactions Criticality Noted Date [...] Take 10 mg by mouth daily. Active ACETAMINOPHEN/D IPHENHYDRAMINE (TYLENOL PM ORAL) Take by mouth. Active aspirin (RIGO) 81 mg Oral TabIndications: Status post mastectomy,[facility] cancer ([facility]) Take by mouth. Active multivitamin (DAILY-TRUDY) Oral tabletIndicatio ns:Status post mastectomy,[facility] cancer ([facility]) Take 1 Tab by mouth daily. Active acetaminophen (TYLENOL) 500 mg tablet Take 500 mg by mouth every 6 hours as needed. Active LORATADINE (CLARITIN ORAL) Take by mouth. Active ALBUTEROL SULFATE INHALATION Take by inhalation. Active verapamiL (VERELAN) 240 mg Sustained Release 24 hour capsule Take 240 mg by mouth 2 times daily. 11/20/2022 Active sertraline (ZOLOFT) 100 mg tablet Take 100 mg by mouth daily. Active candesartan (ATACAND) 32 mg Tablet Take 32 mg by mouth daily. 11/18/2022 Active hydrALAZINE (APRESOLINE) 10 mg tablet Take 2 Tablets by mouth 3 times daily. 01/02/2025 Active meloxicam (MOBIC) 7.5 mg tablet Take 1 Tablet by mouth 2 times daily. 02/24/2025 Active omeprazole (PriLOSEC) 20 mg Capsule, Delayed Release(E.C.) Take 1 Capsule by mouth daily. 01/17/2025 Active BIOTIN ORAL Take by mouth. Extra strength Active Active Problems Patient Care Coordination No te Formatting of this note migh t be different from the original. Primary Care: Jose Luis Camacho MD Referring Provider: Jose Luis Camacho MD [address] [place] [address] Other: Other: Other:Pt denies any family hx of ovarian ca Problem Noted Date Diagnosed Date Obesity (BMI 35.0-39.9 without comorbidity) 12/26 History of right mastectomy 01/24/2016 Overview (01/24/2016): prophylactic mastectomy Genetic testing 10/27/2013 Overview (11/25/2013): moraima neg Breast Cancer left T2 N0, 200906/12/2010 Overview (01/01/2016): Core biopsy left breast 06-06-2010, invasive ductal cancer grade 3, ER/CO negative, HER-2/liang negative, proliferative rate 77%. Left [...] Encounters Date Type Department Care Team Description 06/15/2025 External Device Data [facility] Provider, Abstract 06/14/2025 External Device Data [facility] Provider, Abstract 05/11/2025 External Device Data [facility] Provider, Abstract 05/10/2025 External Device Data [facility] Provider, Abstract 05/03/2025 External Device Data [facility] Provider, Abstract 04/19/2025 External Device Data [facility] Provider, Abstract from Last 3 Months Family History Medical [...] Date Smoking Tobacco: Never Smokeless Tobacco: Never Tobacco Cessation:Counseling Given: Not Answered Alcohol Use Standard Drinks/Week Comments No 0 (1 standard drink = 0.6 oz pur e alcohol) mod Comments No Sex and Gender Information Value Date Recorded Sex Assigned at Not on file Legal Sex Female 5:55 AM CONSULTING SERVICES ASSOCIATE Gender Identity Not on file Sexual Orientation Not on file Occupation Industry Job Start Date Job End Date Not on file Not on file Not on file Not on file Last Filed Vital Signs Vital Sign Reading Time Taken Comments Blood Pressure 140/96 03/17/2025 10:59 AM CDT Pt is nervous Pulse 77 03/17/2025 10:51 AM CDT Temperature 36.6 C (97.8 F) 03/17/2025 10:51 AM CDT Respiratory Rate 15 03/17/2025 10:5 1 AM CDT Oxygen Saturation 95% 03/17/2025 10: 51 AM CDT Inhaled Oxygen Concentration - - Weight 79.6 kg (175 lb 6.4 oz) 03/17/2025 10:51 AM CDT Pt verbally stated that this is the correct weight Height 154.9 cm (5' 1) 12/18/2021 9:55 AM CONSULTING SERVICES ASSOCIATE Body Mass Index 33.14 12/18/2021 9:55 AM CONSULTING SERVICES ASSOCIATE Plan of Treatment Upcoming Encounters Date Type Department Care Team (Late st Contact Info) Description 03/21/2026 10:00 AM CDT Office Visit [facility] Oncology and Hematology - Alan [address] [facility] [address] [place] [address] Oziel Matt MD [address] [facility] [address] [place] [address] Health Maintenance Due Date Last Done Comments DTAP/TDAP/TD VACCINES (1 - Tdap) 1972 PNEUMOCOCCAL VACCINE 50+ YEA RS (1 of 2 - PCV) 1972 COLORECTAL SCREENING 1998 Colorectal Cancer Screening [...] 10/14/2021 6, 09/06/2014, 06/01/2012 INFLUENZA VACCINE (#1) 2025 Procedures Procedure Name Priority Date/Time Associated Diagnosis Comments XR DEXA BONE DENSITY AXIAL 1 OR MORE SITES Routine 10/14/2016 Post-menopausal MAMMO DIAG UNI RIGHT 3D JODI W OR WO CAD Routine 10/10/2015 9:30 AM CONSULTING SERVICES ASSOCIATE Malignant neoplasm of left female breast, unspecified [...] EXTERNAL RADIOLOGY T-SCORE HEEL -1.0 - 1.0 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 TECHNIQUE: Diagnostic mammogram of the right breast was performed on a digital system. Low-dose full-field digital breast tomosynthesis was performed with 2D and 3D acquisitions. Examination is read in conjunction with computer-aided detection. COMPARISON: 09/12/2015, 05/30/2010 and 04/17/2009 from [facility]. BREAST COMPOSITION: Heterogeneously dense. FINDINGS: There [...] detection. COMPARISON: 09/12/2015, 05/30/2010 and 04/17/2009 from [facility]. BREAST COMPOSITION: Heterogeneously dense. FINDINGS: There [...] Maintenance Insurance MEDICARE PART A AND B [facility] SUPP MEDICARE PART A AND B [facility] Advance Directives For more information, please contact: [phone] * Full Code (Latest Code Status on [...] 7:33 AM 07/12/2010 7:33 AM Care Teams Site Physician Relationship Specialty Start Date End Date Farhana Hardy DO [address] [facility] [address] [place] [address] PCP - General Family Practice 06/25/23
[2025-06-24 18:22] LABS: Hematocrit 41.1 % (37.0-47.0); Hemoglobin 12.6 g/dL (12.0-15.0); Mean Corpuscular HGB Conc 30.7 g/dl (32-36); Mean Corpuscular Hemoglobin 29.7 pg (26-34); Mean Corpuscular Volume 96.9 fl (80-100); Platelet Count Result 250 k/mm3 (150-375); Red Blood Count 4.24 M/mm3 (4.2-5.4); White Blood Count 4.8 K/mm3 (4.5-10.0)
[2025-06-24 19:09] LABS: Alanine Aminotransferase 18 U/L (6-35); Albumin Level 4.3 g/dL (3.5-5.1); Alkaline Phosphatase 83 U/L (38-126); Anion Gap 8 mmol/L (4-12); Aspartate Amino Transferase 49 U/L (14-36); Bilirubin,Total 0.5 mg/dL (0.2-1.3); Blood Urea Nitrogen 13 mg/dL (7-17); Calcium 9.5 mg/dL (8.4-10.2); Carbon Dioxide 28 mmol/L (22-30); Chloride 102 mmol/L (98-107); Cholesterol 182 mg/dL (0-200); Estimated Glomerular Filt Rate > 60; Glucose 68 mg/dL (65-110); HDL Direct 43 mg/dL; Potassium 4.1 mmol/L (3.4-5.0); Sodium 138 mmol/L (137-145); Total Protein 6.8 g/dL (6.3-8.2); Triglycerides 119 mg/dL (<150)
[2025-06-24 19:44] LABS: Thyroid Stimulating Hormone 0.778 uIU/mL (0.465-4.680)
[2025-07-01 07:09] LABS: 1,25-Dihydroxy, Vitamin D-2 <10 pg/mL (.); 1,25-Dihydroxy, Vitamin D-3 31 pg/mL (.); Total 1,25-Dihydroxy,Vitamin D 32 pg/mL (.)
== END 2025-06-24 08:38 | disposition home or self-care (01) ==
LOC: ANHGOSHLAB 08:38
PROVIDERS: PCP Family Medicine; Visit Provider Family Medicine
DX: I10 Essential (primary) hypertension (principal); E78.5 Hyperlipidemia, unspecified; E66.9 Obesity, unspecified; E55.9 Vitamin D deficiency, unspecified
CPT/HCPCS: 36415; 80053; 80061; 82652; 84443; 85027